=== PATIENT | female | born 1940 | race Caucasian/White ===

== ENCOUNTER → 2019-11-20 14:05 | Outpatient (CLI) | payer MEDICARE, SELFPAY ==
--- NOTE | ~2019-11-20 | MM_ITS ---
EXAMINATION: MM screening ciro BI w waldemar HISTORY: Screening mammogram TECHNIQUE: Craniocaudal and mediolateral oblique 3-D tomosynthesis images were obtained and synthetic 2-D images were generated. CAD analysis was submitted and interpreted. COMPARISON: No prior mammogram is available for comparison at this institution. BREAST PARENCHYMAL COMPOSITION: There are scattered areas of fibroglandular density. FINDINGS: There is no evidence of suspicious mass, calcification, or architectural distortion to sugg est malignancy in either breast. There has been no suspicious interval change. IMPRESSION: 1. No mammographic evidence of malignancy. 2. Recommend routine screening mammography in one year. BI-RADS Category 2: Benign finding(s). Reviewed, dictated and finalized at location A.
== END ==
PROVIDERS: Visit Provider Clinical Nurse Specialist
DX: Z12.31 Encounter for screening mammogram for malignant neoplasm of breast (principal)
CPT/HCPCS: 77063; 77067

== ENCOUNTER → 2020-03-17 11:18 | Outpatient (CLI) | payer MEDICARE, SELFPAY ==
--- NOTE | ~2020-03-17 | DEXA_ITS ---
Bone Density Report Name: Cristina Moran Age: 79 Sex: Female Ethnicity: White Date of : 1940 Indication: postmenopausal; screening for osteoporosis; height loss; hysterectomy; Referring Provider: Marylu Boateng Study: Bone densitometry was performed. Exam Date: March 17, 2020 Accession number: [id number] Bone Density: Region BMD T-score Z-score Classification AP Spine (L1, L2, L4) 0.925 -1.0 1.6 Normal Femoral Neck (Left) 0.577 -2.5 -0.2 Osteoporosis Total Hip (Left) 0.835 -0.9 1.1 Normal Femoral Neck (Right) 0.628 -2.0 0.2 Osteopenia Total Hip (Right) 0.775 -1.4 0.6 Osteopenia Total Hip Mean 0.805 -1.2 0.9 Osteopenia World Health Organization criteria for BMD impression classify patients as: Normal (T-score at or above -1.0), Osteopenia (T-score between -1.0 and -2.5), or Osteoporosis (T-score at or below -2.5). 10-year Fracture Risk: FRAX not reported because: Some T-score for Spine Total or Hip Total or Femoral Neck at or below -2.5 Previous Exams: Region Exam Age BMD T-score BMD Change BMD Change Date g/cm2 vs Baseline vs Previous AP Spine(L1, L2, L4) 03/17/2020 79 0.925 -1.0 -0.062* -0.015 03/08/2018 77 0.940 -0.9 -0.047* -0.024* 07/09/2014 73 0.964 -0.6 -0.023* -0.023* 07/06/2012 71 0.987 -0.4 Total Hip(Left) 03/17/2020 79 0.835 -0.9 -0.148* -0.061* 03/08/2018 77 0.897 -0.4 -0.086* -0.023 07/09/2014 73 0.920 -0.2 -0.063* -0.063* 07/06/2012 71 0.983 0.3 Total Hip(Right) 03/17/2020 79 0.775 -1.4 -0.150* -0.087* 03/08/2018 77 0.861 -0.7 -0.064* -0.011 07/09/2014 73 0.873 -0.6 -0.053* -0.053* 07/06/2012 71 0.925 -0.1 *Denotes significance at 95% confidence level, LSC for AP Spine = 0.022 g/cm2, LSC for Total Hip = 0.027 g/cm2 Clinical Information Provided by Patient: Has used the following medications: Vitamin D, Calcium, MTV Has the following medical conditions: Hysterectomy Patient maximum height was 62.5 Menopause Age: 56 No regular weight bearing exercise Drinks caffeinated beverages Onset of menses at age 13 Number of children 3 Impression: The patient has osteoporosis, based on the Left Femoral Neck T-score. The BMD for the Total Hip(Left) decreased, changing by -0.061 since the last DXA exam. The BMD for the Total Hip(Righ
== END ==
PROVIDERS: PCP Internal Medicine; Visit Provider Clinical Nurse Specialist
DX: Z78.0 Asymptomatic menopausal state (principal); M81.0 Age-related osteoporosis without current pathological fracture; M85.851 Other specified disorders of bone density and structure, right thigh
CPT/HCPCS: 77080

== ENCOUNTER → 2020-03-23 11:36 | Outpatient (CLI) | payer MEDICARE, SELFPAY ==
--- NOTE | ~2020-03-23 | XR_ITS ---
EXAMINATION: XR hip BI 2V w AP pelvis EXAM DATE: 03/23/2020 11:55 INDICATION: M25.559 - Pain in unspecified hip. TECHNIQUE: Each hip imaged independently (separate right and also left hip) 'frog leg' and frontal p rojections for interpretation. Frontal projection pelvis. There is no prior study for comparison. FINDINGS: No radiographic evidence of hip avascular necrosis. There is mild to moderate symmetric bi lateral hip and sacroiliac primary osteoarthritis. There are no acute fractures or dislocations ident ified. There is no subcutaneous gas. The soft tissue is unremarkable. There are no radiopaque for eign bodies. 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 Reviewed, dictated and finalized at location B. TER HELPER
== END ==
PROVIDERS: PCP Internal Medicine; Visit Provider Clinical Nurse Specialist
DX: M16.0 Bilateral primary osteoarthritis of hip (principal)
CPT/HCPCS: 73521

== ENCOUNTER → 2020-11-27 10:05 | Outpatient (CLI) | payer MEDICARE, SELFPAY ==
--- NOTE | ~2020-11-27 | MM_ITS ---
EXAMINATION: MM screening icro BI w waldemar HISTORY: Screening mammogram, family history of breast cancer in her sister. TECHNIQUE: Craniocaudal and mediolateral oblique 3-D tomosynthesis images were obtained and synthetic 2-D images were generated. CAD analysis was submitted and interpreted. COMPARISON: 11/20/2019, 10/03/2018, 09/27/2017 BREAST PARENCHYMAL COMPOSITION: There are scattered areas of fibroglandular density. FINDINGS: RIGHT BREAST: There are asymmetries in the anterior third of the outer breast 5.6 cm from the nipple on the craniocaudal view and 12 cm from the nipple in line with the nipple axis on the mediolateral o blique view. LEFT BREAST: An asymmetry is present in the middle third of the breast in line with the nipple axis 7 .5 cm from the nipple on the mediolateral oblique view. IMPRESSION: 1. Bilateral breast findings as described above. 2. Additional mammographic views and possible breast ultrasound are recommended. BI-RADS Category 0: Incomplete: Needs additional imaging evaluation. Reviewed, dictated and finalized at location A. IMPRESSION: 1. Bilateral breast findings as described above. 2. Additional mammographic views and possible breast ultrasound are recommended . BI-RADS Category 0: Incomplete: Needs additional imaging evaluation.
== END ==
PROVIDERS: PCP Internal Medicine; Visit Provider Nurse Practitioner
DX: Z12.31 Encounter for screening mammogram for malignant neoplasm of breast (principal); R92.8 Other abnormal and inconclusive findings on diagnostic imaging of breast
CPT/HCPCS: 77063; 77067

== ENCOUNTER 2020-12-18 13:10 | Outpatient (CLI) | payer MEDICARE, SELFPAY ==
--- NOTE | ~2020-12-18 | MMUS_ITS ---
EXAMINATION: MM diagnostic ciro BI w waldemar, US breast BI complete HISTORY: Follow-up breast asymmetries TECHNIQUE: Additional 3-D tomosynthesis images of the breasts were performed and synthetic 2-D images were generated. CAD analysis was submitted and interpreted. High resolution complete bilateral breas t ultrasound was performed. COMPARISON: Comparison to multiple prior studies sequentially, with oldest reviewed study dated 08/23. BREAST PARENCHYMAL COMPOSITION: The breasts are heterogenously dense, which may obscure small masses. FINDINGS: MAMMOGRAPHIC FINDINGS: There are no suspicious masses, calcifications or architectural distortion in either breast to sugges t malignancy. There are benign bilateral breast calcifications. ULTRASOUND: Right breast ultrasound: At 3:00 there is an echogenic focus with posterior shadowing, consistent wit h calcification measuring 5 mm. At 10:00, 3 cm from the nipple, there is a 4 mm cyst. At 11:00, 4 cm from the nipple, there is an oval hypoechoic mass measuring 5 mm with low level internal echoes, no s ignificant posterior features and no internal vascularity. Left breast ultrasound: Normal heterogeneous echotexture without focal solid or cystic mass. IMPRESSION: 1. Probable benign 5 mm mass of the right breast at 11:00, 4 cm from the nipple. No evidence for vonnie gnancy in the left breast. 2. Recommend 6 month follow-up right breast ultrasound BI-RADS category 3, probably benign findings. Reviewed, dictated and finalized at location A. IMPRESSION: 1. Probable benign 5 mm mass of the right breast at 11:00, 4 cm from the nipple . No evidence for malignancy in the left breast. 2. Recommend 6 month follow-up right breast ultrasound BI-RADS category 3, probably benign findings.
== END 2020-12-18 13:11 | disposition home or self-care (01) ==
LOC: ANHIMG 13:12
PROVIDERS: PCP Internal Medicine; Visit Provider Nurse Practitioner
DX: R92.8 Other abnormal and inconclusive findings on diagnostic imaging of breast (principal)
CPT/HCPCS: 76641; 77062; 77066; G0279

== ENCOUNTER 2020-12-18 14:29 | Emergency (ER) | payer MEDICARE, SELFPAY ==
--- NOTE | ~2020-12-18 | CT_ITS ---
EXAMINATION: CT abdomen pelvis w con EXAM DATE: 12/18/2020 17:47 INDICATION: Suprapubic pain . TECHNIQUE: Spiral CT of the abdomen and pelvis was performed following intravenous injection of 100 m L Omnipaque 350. Axial, coronal and sagittal images of the abdomen and pelvis were reviewed. The do se-length product (DLP) for this examination was 1339.49 mGy-cm. The exposure was tailored according to patient size (auto mA exposure control), and iterative reconstruction (ASIR) was used as addition al dose reduction technique. Comparison is made to prior examination from 2008. FINDINGS: The liver, spleen, adrenal glands and pancreas are unremarkable. There are cholecystectomy clips. Portal and splenic veins are patent. Kidneys enhance symmetrically. There is no hydronephr osis. The uterus is not identified and has likely been surgically resected. diffuse bladder wall t hickening with enhancing mucosa suspicious for cystitis. Correlate with urinalysis. There is no retr operitoneal or pelvic lymphadenopathy. There is mild scattered arteriosclerotic disease. The appendix is normal. The stomach and small bowel are unremarkable. There is expected amount of c olonic stool. No free intraperitoneal gas. The heart is normal in size. There are no pericardial or pleural effusions. Left basilar calcified granuloma and several smaller noncalcified nodules, la rgest measuring 7 mm appears to be unchanged compared to a CT from 2009, granulomata. There are no o steoblastic or osteolytic lesions identified. IMPRESSION: Cystitis. Correlate with urinalysis. Reviewed, dictated and finalized at location .
[2020-12-18 14:33] VITALS: BP 143/73; PULSE 84; RESP 16; TEMP 36.3; O2SAT 96
[2020-12-18 14:48] LABS: Basophils Percent Auto 0.2 % (0.2-1.2); Eosinophils Percent Auto 0.5 % (0-4.4); Hematocrit 43.2 % (37.0-47.0); Hemoglobin 14.2 g/dL (12.0-15.0); Immature Granulocyte Absolute 0.04 K/mm3 (0.00-0.031); Immature Granulocyte Percent A 0.5 % (0-0.5); Lymphocytes Absolute Auto 2.11 K/mm3 (0.9-3.2); Lymphocytes Percent Auto 25.2 % (18.3-44.2); Mean Corpuscular HGB Conc 32.9 g/dl (32-36); Mean Corpuscular Hemoglobin 29.6 pg (26-34); Mean Corpuscular Volume 90.2 fl (80-100); Mean Platelet Volume 9.4 fl (7.4-10.4); Monocytes Absolute Auto 0.5 K/mm3 (0.1-0.6); Monocytes Percent Auto 6.5 % (2.6-8.5); Neutrophils Absolute Auto 5.6 K/mm3 (1.3-6.7); Neutrophils Percent Auto 67.1 % (45.5-73.1); Platelet Count Result 175 k/mm3 (150-375); Red Blood Count 4.79 M/mm3 (4.2-5.4); Red Cell Distribution Width 12.4 % (11.5-14.5); White Blood Count 8.4 K/mm3 (4.5-10.0)
[2020-12-18 15:02] LABS: Anion Gap 9 mmol/L (8-16); Blood Urea Nitrogen 12 mg/dL (7-17); Calcium 9.6 mg/dL (8.4-10.2); Carbon Dioxide 24 mmol/L (22-30); Chloride 104 mmol/L (98-107); Estimated CRCL calculation 76 ml/min; Estimated Glomerular Filt Rate > 60; Glucose 120 mg/dL (65-110); Potassium 4.1 mmol/L (3.4-5.0); Sodium 137 mmol/L (137-145)
[2020-12-18 15:20] LABS: Add Urine Microscopic? YES; Appearance Urine Cloudy (Clear); Bacteria Urine Trace /hpf; Bilirubin Urine Negative (Negative); Blood Urine 2+ (Negative); Color Urine Yellow (Yellow); Glucose Urine UA Negative (Negative); Ketones Urine Negative (Negative); Leukocyte Esterase Ur 3+ LEU/UL (Negative); Nitrate Urine Negative (Negative); Protein Urine 2+ mg/dL (Negative); RBC Urine 51-75 /hpf (0-2); Urobilinogen Urine Negative mg/dL (<2.0); WBC Urine >75 /hpf
--- NOTE | 2020-12-18 16:38 | ED.FEMALEGU ---
HPI - Female Genitourinary General Chief complaint: Urogenital-Female Stated complaint: POSS UTI Time Seen by Provider: 12/18/20 16:37 Source: patient Mode of arrival: ambulatory Limitations: no limitations History of Present Illness HPI Narrative: Patient 80 years old white female came to the emergency room from home with her complaining of recurrent urinary tract infection over the last few weeks. Patient also complaining of bulging at the rectal area. Patient denies any fever, nausea, vomiting, diarrhea, constipation. Patient complaining of frequent urination, burning sensation and urgency. Patient is fully vaccinated for COVID-19. Related Data Home Medications Medication Instructions Recorded Confirmed ascorbate calcium (vitamin C) 500 500 mg PO DAILY 02/21/19 12/11/20 mg tablet cholecalciferol (vitamin D3) 50 2,000 unit PO DAILY 02/21/19 12/11/20 mcg (2,000 unit) tablet melatonin 10 mg tablet PO QPM tablet 02/21/19 12/11/20 multivitamin 1 tablet PO DAILY 02/21/19 12/11/20 potassium 99 mg tablet mg PO DAILY tablet 02/21/19 12/11/20 ibuprofen 200 mg tablet 200 mg PO QPM tablet 02/26/20 12/11/20 vitamin B complex 1 tablet PO DAILY 11/13/20 12/11/20 calcium acetate 667 mg tablet 1,334 mg PO DAILY tablet 12/11/20 12/11/20 Allergies Allergy/AdvReac Type Severity Reaction Status Date / Time oxycodone Allergy Severe NAUSEA AND Verified 12/18/20 16:56 ITCHING Penicillins Allergy Severe ITCHING Verified 12/18/20 16:56 Review of Systems Review of Systems: CONSTITUTIONAL: Denies fever, chills, or sweats. EYES: Denies visual changes, redness, or discharge. ENT: Denies rhinorrhea, congestion, sore throat, or otalgia. CARDIOVASCULAR: Denies chest pain, palpitations, or edema. RESPIRATORY: Denies cough or dyspnea. GASTROINTESTINAL: Denies abdominal pain, nausea, vomiting, or diarrhea. GENITOURINARY: Complaining of dysuria and hematuria SKIN: Denies rash or itching. MUSCULOSKELETAL: Denies back pain, joint pain, or myalgia. NEUROLOGIC: Denies headache, numbness, or weakness. PSYCHIATRIC: Denies anxiety or depression. [facility], [facility] Past Medical History Medical History Allergies Cataract Cholecystectomy planned 2006 GERD (gastroesophageal reflux disease) Glaucoma Heart palpitations Heartburn Hyperglycemia Hyperkalemia Hyperlipidemia Hypertension Hyperthyroidism Lymph node symptom Lymph nodes removed from left breast Mumps Osteoarthritis Osteoporosis Post-menopausal Skin disorder Tumors Surgical History Surgical History H/O removal of cyst From neck 1996 H/O tubal ligation 1983 H/O: hysterectomy 1996 History of knee replacement Right: 1994 Left: 2001 Family History Family History Mother Family history of heart disease in male family member before age 55 Acute myocardial infarction Breast disorder Father Malignant neoplasm of prostate Sibling Acute myocardial infarction COPD (chronic obstructive pulmonary disease) Heart disease Other Family history of type 2 diabetes mellitus Social History Social History Smoking status: Never smoker Alcohol intake: never Substance use: never Exam Narrative: General appearance: Well-developed, well-nourished Skin: Normal color Head: Normocephalic, nontraumatic Eyes: Clear conjunctiva ENT: Oropharynx normal, ears normal, nose normal Neck: Supple, nontender Chest and respiratory: Airway patent, no respiratory distress, no accessory muscle use Heart: Regular rate/rhythm Abdomen: Soft, nontender, no organomegaly, quiet bowel sounds, rectal exam showed skin tag, no hemorrhoids, no bleeding, no mass Vascular: Normal peripheral pulses, normal capillary refill. Musculoskeletal: Normal range of motion, nontender back Neurologic
[2020-12-18 16:56] VITALS: BP 131/69; PULSE 87; RESP 16; TEMP 37; O2SAT 99
[2020-12-18] MEDS: SODIUM CHLORIDE 0.9% IV 1,000 ML 999 ML IV CONT (17:16)
[2020-12-18 18:40] VITALS: BP 124/68; PULSE 88; RESP 16
== END 2020-12-18 18:59 | disposition home or self-care (01) ==
PROVIDERS: General Practice; Emergency Provider Emergency Medicine; PCP Internal Medicine
DX: N30.00 Acute cystitis without hematuria (principal); E78.5 Hyperlipidemia, unspecified; I10 Essential (primary) hypertension; E05.90 Thyrotoxicosis, unspecified without thyrotoxic crisis or storm; M19.90 Unspecified osteoarthritis, unspecified site; M81.0 Age-related osteoporosis without current pathological fracture; Z87.19 Personal history of other diseases of the digestive system; Z98.51 Tubal ligation status; Z90.710 Acquired absence of both cervix and uterus; Z79.899 Other long term (current) drug therapy
CPT/HCPCS: 36415; 74177; 76641; 77062; 77066; 80048; 81001; 85025; 87086; 96361; 96365; 99284; G0279; J0696; J7030; Q9967

== ENCOUNTER → 2021-06-18 14:07 | Outpatient (CLI) | payer MEDICARE, SELFPAY ==
--- NOTE | ~2021-06-18 | US_ITS ---
EXAMINATION: US breast RT limited HISTORY: Six-month follow-up for probably benign sonographically detected right breast masses TECHNIQUE: Limited right breast ultrasound is performed. FINDINGS: The hypoechoic masses previously identified at the 11:00 location both demonstrate interval decrease in size, consistent with benign findings. No suspicious cystic or solid mass is identified. IMPRESSION: Benign right breast masses. Routine screening mammography is recommended. BI-RADS Category 2: Benign finding(s). Reviewed, dictated and finalized at location A.
== END ==
PROVIDERS: Visit Provider Clinical Nurse Specialist
DX: R92.8 Other abnormal and inconclusive findings on diagnostic imaging of breast (principal)
CPT/HCPCS: 76642

== ENCOUNTER 2021-07-15 12:24 | Outpatient (CLI) | payer MEDICARE, SELFPAY ==
--- NOTE | 2021-07-15 12:35 | ECG_ITS ---
Measurements Intervals [place] Rate: 79 P: 47 VA: 167 QRS: -29 QRSD: 85 T: 15 QT: 349 QTc: 401 Interpretive Statements SINUS RHYTHM LOW QRS VOLTAGE IN PRECORDIAL LEADS [QRS DEFLECTION < 1.0 mV IN CHEST LEADS] ANTEROSEPTAL MYOCARDIAL INFARCTION [40+ ms Q WAVE IN V1-V4], PROBABLY OLD NO PREVIOUS ECG AVAILABLE FOR COMPARISON Electronically Signed On 07-15-2021 17:00:25 CDT by Adrian Pollard M.D.
[2021-07-15 13:02] LABS: Basophils Percent Auto 0.5 % (0.2-1.2); Eosinophils Percent Auto 0.5 % (0-4.4); Hematocrit 41.4 % (37.0-47.0); Hemoglobin 13.8 g/dL (12.0-15.0); Immature Granulocyte Absolute 0.02 K/mm3 (0.00-0.031); Immature Granulocyte Percent A 0.5 % (0-0.5); Lymphocytes Absolute Auto 1.61 K/mm3 (0.9-3.2); Lymphocytes Percent Auto 40.1 % (18.3-44.2); Mean Corpuscular HGB Conc 33.3 g/dl (32-36); Mean Corpuscular Hemoglobin 29.7 pg (26-34); Mean Platelet Volume 9.1 fl (7.4-10.4); Monocytes Absolute Auto 0.3 K/mm3 (0.1-0.6); Monocytes Percent Auto 6.5 % (2.6-8.5); Neutrophils Absolute Auto 2.1 K/mm3 (1.3-6.7); Neutrophils Percent Auto 51.9 % (45.5-73.1); Platelet Count Result 152 k/mm3 (150-375); Red Blood Count 4.65 M/mm3 (4.2-5.4); Red Cell Distribution Width 12.8 % (11.5-14.5)
[2021-07-15 13:10] LABS: Alanine Aminotransferase 22 U/L (4-35); Albumin Level 4.2 g/dL (3.5-5.1); Alkaline Phosphatase 98 U/L (38-126); Anion Gap 9 mmol/L (8-16); Aspartate Amino Transferase 26 U/L (14-36); Bilirubin,Total 0.3 mg/dL (0.2-1.3); Blood Urea Nitrogen 20 mg/dL (7-17); Calcium 9.2 mg/dL (8.4-10.2); Carbon Dioxide 26 mmol/L (22-30); Chloride 103 mmol/L (98-107); Estimated Glomerular Filt Rate > 60; Glucose 118 mg/dL (65-110); Potassium 4.2 mmol/L (3.4-5.0); Sodium 138 mmol/L (137-145)
[2021-07-15 13:31] LABS: Prothrombin Time 12.9 Seconds (11.1-14.7)
[2021-07-15 13:32] LABS: Partial Thromboplastin Time 25.9 SECONDS (22.3-36.8)
== END 2021-07-15 12:25 | disposition home or self-care (01) ==
PROVIDERS: PCP Internal Medicine; Visit Provider Urology
DX: Z01.818 Encounter for other preprocedural examination (principal); N99.3 Prolapse of vaginal vault after hysterectomy; I10 Essential (primary) hypertension; R94.31 Abnormal electrocardiogram [ECG] [EKG]
CPT/HCPCS: 36415; 80053; 85025; 85610; 85730; 86850; 86900; 86901; 87086; 93005

== ENCOUNTER 2021-07-23 00:44 | Day surgery (SDC) | payer MEDICARE, SELFPAY ==
[2021-07-09 12:25] VITALS: BMI 35.4
--- NOTE | 2021-07-09 12:42 | PC.NURSE ---
Report to the Outpatient Waiting Room, entrance under the green pavilion located off [facility], at time _0830_ on date _07/23/21_. OR Time: _1030_. - You and your visitor will be asked a series of questions to screen for COVID 19 for your protection. - A mask is required within the hospital. One visitor will be allowed to accompany the patient into the hospital. Patients visitor will be instructed to remain with patient at all times or leave the building. We will allow the visitor to come back to the postoperative area when patient is ready. Preoperative COVID Testing Requirements: NONE Patients may have clear liquids (water, carbonated beverages, clear teas, apple juice) until 3 hours prior to surgery (0730 AM) with a maximum of 20 ounces. - No food from midnight until time of surgery Take the following medications with a SIP of water the morning of surgery: __NONE__ Medications to discontinue _PT STATES TO STOP IBUPROFEN, VITAMINS AND SUPPLEMENTS [address] GAMA Date to take last dose_07/19/21_ Please no make-up, nail italian, hairspray, perfume, deodorant, or body powder the day of surgery. No jewelry (including any body piercings) or valuables the day of surgery, leave them at home. Please take a shower or bath the night before, or the morning of, surgery with an antibacterial soap. Wear comfortable, loose fitting clothing. - Jewelry must be removed prior to entering the operating room. Rings and piercings that are not removed may be cut off. - The hospital will not accept responsibility for valuables. - Please leave all valuables, including medications, at home the day of surgery. If you are going home after surgery, a licensed m48/m60 tank driver must drive you home. - NO public transportation without another adult. - We recommend that an adult stay with you for 24 hours following discharge. - We also recommend that you do not drive, make important decision, drink alcoholic beverages, or take any drugs that were not prescribed by your health care provider for at least 24 hours after your discharge time. Follow any additional instructions given to you from your surgeon. Telephone instructions given to _PT_and asked if any additional questions and then verbalized understanding. Patient advised to call surgeon office or pre surgery nurse liaison [phone] if any additional questions.
--- NOTE | 2021-07-17 11:59 | PM.IMHP ---
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 Chief Complaint: POP/ISD Review of Systems Review of Systems: All systems reviewed & are unremarkable except as noted in HPI and below PMFSH Past Medical History Medical History Allergies Cataract Cholecystectomy planned 2006 GERD (gastroesophageal reflux disease) Glaucoma Heart palpitations Heartburn Hyperglycemia Hyperkalemia Hyperlipidemia Hypertension Hyperthyroidism Lymph node symptom Lymph nodes removed from left breast Mumps Osteoarthritis Osteoporosis Post-menopausal Skin disorder Tumors Surgical History Surgical History H/O removal of cyst From neck 1996 H/O tubal ligation 1983 H/O: hysterectomy 1996 History of knee replacement Right: 1994 Left: 2001 Family History Family History Mother Family history of heart disease in male family member before age 55 Acute myocardial infarction Breast disorder Father Malignant neoplasm of prostate Sibling Acute myocardial infarction COPD (chronic obstructive pulmonary disease) Heart disease Other Family history of type 2 diabetes mellitus Social History Social History Smoking status: Never smoker Second hand tobacco smoke exposure: No Alcohol intake: never Substance use: never Substance use type: does not use Spiritual care concerns: No Meds Home Medications and Allergies Home Medications Medication Instructions Recorded Confirmed Type ascorbate calcium (vitamin C) 500 500 mg PO QAM 02/21/19 07/09/21 History mg tablet cholecalciferol (vitamin D3) 50 2,000 unit PO DAILY 02/21/19 07/09/21 History mcg (2,000 unit) tablet melatonin 10 mg tablet 10 mg PO QPM tablet 02/21/19 07/09/21 History multivitamin 1 tablet PO DAILY 02/21/19 07/09/21 History potassium 99 mg tablet 40 mg PO QAM tablet 02/21/19 07/09/21 History ibuprofen 200 mg tablet 200 mg PO QPM PRN tablet 02/26/20 07/09/21 History calcium acetate 667 mg tablet 1,334 mg PO QAM tablet 12/11/20 07/09/21 History mirabegron 50 mg tablet,extended 50 mg PO HS 03/10/21 07/09/21 History release 24 hr cranberry 500 mg PO QAM 07/09/21 07/09/21 History lisinopril 20 mg PO QAM 07/09/21 07/09/21 History nitrofurantoin macrocrystal 50 mg HS 07/09/21 07/09/21 History omeprazole 20 mg PO QAM 07/09/21 07/09/21 History simvastatin 40 mg PO QAM 07/09/21 07/09/21 History sulfamethoxazole-trimethoprim 1 tablet DAILY 07/09/21 07/09/21 History Allergies Allergy/AdvReac Type Severity Reaction Status Date / Time oxycodone AdvReac Severe NAUSEA AND Verified 07/09/21 12:14 ITCHING Penicillins AdvReac Severe ITCHING Verified 07/09/21 12:14 Exam Narrative: A+O x3 normal breathing fixed urethra APex at +4 Assessment and Plan Assessment and plan (1) Prolapse of vaginal vault after hysterectomy: Code(s): N99.3 - Prolapse of vaginal vault after hysterectomy Status: Acute Assessment and Plan: colpocleisis (2) Intrinsic sphincter deficiency (ISD): Code(s): N36.42 - Intrinsic sphincter deficiency (ISD) Status: Acute Assessment and Plan: bulking agetn
--- NOTE | 2021-07-22 13:30 | WPDANESEPPF ---
Anes - Initial Pre Proc Eval Procedure: Operation Date: 07/23/21 10:30 Proposed Procedures p Colpocleisis, - Ted Coombs MD s Cystoscopy with Injection Bulking Agent - Ted Coombs MD Date/Time: 07/22/21 13:30 Surgeon: Ted Coombs MD Pre Op Diagnosis: prolapse of vag vault after hyst, ID Patient Data Age: 80 Gender: F Height: 1.52 m Weight: 82.27 kg Allergies Allergy/AdvReac Type Severity Reaction Status Date / Time oxycodone AdvReac Severe NAUSEA AND Verified 07/23/21 08:46 ITCHING Penicillins AdvReac Severe ITCHING Verified 07/23/21 08:46 Home Medications Medication Instructions Recorded Confirmed Type ascorbate calcium (vitamin C) 500 500 mg PO QAM 02/21/19 07/23/21 History mg tablet cholecalciferol (vitamin D3) 50 2,000 unit PO DAILY 02/21/19 07/23/21 History mcg (2,000 unit) tablet melatonin 10 mg tablet 10 mg PO QPM tablet 02/21/19 07/23/21 History multivitamin 1 tablet PO DAILY 02/21/19 07/23/21 History potassium 99 mg tablet 40 mg PO QAM tablet 02/21/19 07/23/21 History ibuprofen 200 mg tablet 200 mg PO QPM PRN tablet 02/26/20 07/23/21 History calcium acetate 667 mg tablet 1,334 mg PO QAM tablet 12/11/20 07/23/21 History mirabegron 50 mg tablet,extended 50 mg PO HS 03/10/21 07/23/21 History release 24 hr cranberry 500 mg PO QAM 07/09/21 07/23/21 History lisinopril 20 mg PO QAM 07/09/21 07/23/21 History nitrofurantoin macrocrystal 50 mg HS 07/09/21 07/23/21 History omeprazole 20 mg PO QAM 07/09/21 07/23/21 History simvastatin 40 mg PO QAM 07/09/21 07/23/21 History sulfamethoxazole-trimethoprim 1 tablet DAILY 07/09/21 07/23/21 History Patient hx anesthesia problems: none Family hx anesthesia problems: none Results Review: All pre-operative results and documents have been reviewed as part of the pre-operative evaluation. [facility] Past Medical History Medical History Allergies Cataract Cholecystectomy planned 2006 GERD (gastroesophageal reflux disease) Glaucoma Heart palpitations Heartburn Hyperglycemia Hyperkalemia Hyperlipidemia Hypertension Hyperthyroidism Lymph node symptom Lymph nodes removed from left breast Mumps Osteoarthritis Osteoporosis Post-menopausal Skin disorder Tumors Surgical History Surgical History H/O removal of cyst From neck 1996 H/O tubal ligation 1983 H/O: hysterectomy 1996 History of knee replacement Right: 1994 Left: 2001 Family History Family History Mother Family history of heart disease in male family member before age 55 Acute myocardial infarction Breast disorder Father Malignant neoplasm of prostate Sibling Acute myocardial infarction COPD (chronic obstructive pulmonary disease) Heart disease Other Family history of type 2 diabetes mellitus Social History Social History Smoking status: Never smoker Second hand tobacco smoke exposure: No Alcohol intake: never Substance use: never Substance use type: does not use Living arrangements: with family Spiritual care concerns: No Anes - Eval Final PreProcedure Day of Procedure 07/22/21 13:30 Patient weight: obese Heart: regular rate and rhythm Lungs: clear to auscultation and normal air movement Airway: Mallampati scale class II Neurological: alert and oriented Last oral intake: >/= 8 hours ASA classification: III Emergent: no Anesthetic plan: proceed Anesthesia type and monitoring: general LMA and standard monitoring Results Review: All pre-operative results and documents have been reviewed as part of the pre-operative evaluation. Informed Consent: The patient's anesthetic plan and its attendant risks and benefits were discussed with the patient/family/POA. Questions were solicited and answers prov
[2021-07-23] VITALS (10 sets, daily range): BP systolic 119–152; BP diastolic 47–83; PULSE 75–87; RESP 14–17; TEMP 36.2–36.5; O2SAT 94–100
--- NOTE | 2021-07-23 07:16 | WPDHPUPDATE1 ---
History and Physical Update Update Date/Time: 07/23/21 07:16 History and Physical has been reviewed, including an updated exam of the patient. There are NO changes in the patient's condition. Risks, benefits, and alternatives have been discussed and questions answered. Patient agrees to proceed with procedure.
[2021-07-23] MEDS: LACTATED RINGERS 1,000 ML 30 ML IV CONT ×2 (09:12→12:49)
[2021-07-23] MEDS: ceFAZolin 2 GM/D5W 50 ML 2 GM/50 ML BAG IVPB (10:44)
--- NOTE | 2021-07-23 11:28 | SUR.OPER ---
bulkamid uretheral bulking system Lot# [id number], exp 2023-10-01, ref #[id number]. 1 ml used.
--- NOTE | 2021-07-23 12:05 | W.PM.PROC2 ---
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 She is not sexually active. She also has intrinsic sphincter deficiency and stress incontinence She understands risks of bleeding, infection, persistent incontinence, recurrent incontinence, obstructive voiding work, recurrence of prolapse, damage to surrounding organs including the bowel and urinary tract, inability to have penetrated intercourse. She agrees to proceed Findings Large vaginal vault prolapse. Intrinsic sphincter deficiency Description of Procedure She has correctly identified. Informed consent obtained. She brought the operating room. She was given general anesthesia. She was prepped and draped in a sterile fashion in the dorsal lithotomy position. Time-out performed. I placed Glynn catheter. I placed a [place] retractor. I grasped the vaginal vault prolapse. It was significantly beyond the introitus. I tamara 2 rectangle shaped areas. One on the anterior vaginal. One on the posterior vaginal wall. I then anesthetized the posterior vaginal wall. I removed the mucosa off the posterior vaginal wall leaving the underlying tissues. I did the same on the anterior vaginal wall. I did not enter the abdomen or violate any peritoneal structures. I then performed a classic colpocleisis with serial pursestring sutures of 0 Vicryl. This resulted in complete reduction of the prolapse. There was excellent hemostasis. I then closed mucosa to mucosa with interrupted horizontal mattress of 0 Vicryl suture. This completed the colpectomy. I then marked out a eriberto-shaped area of skin on the perineum. I anesthetized this area. I removed the skin. I performed a high levator repair/perineorrhaphy with 0 Vicryl sutures. I used a 2 0 Vicryl to close the mucosa. This resulted in complete closure of the perineum. I then performed cystoscopy. She had moderate trabeculations. There was no surgical artifact in the bladder or urethra. Both ureters were seen to excrete clear yellow urine. She had a wide-mouth diverticulum posteriorly. I then injected my bulking agent in the urethra. I did so 2 cm distal to the bladder neck. I injected circumferentially around the urethral bulking up the urethra. I left the bladder partially full. She was awakened and transferred to PACU in stable condition Estimated Blood Loss 50 Drains No Packing No Pathology None sent Complications No immediate complications Condition Stable Disposition PACU
[2021-07-23] MEDS: fentaNYL CITRATE INJ (*CRX) 100 MCG/2 ML VIAL 25 MCG IV PUSH ×5 (12:19→12:52)
[2021-07-23] MEDS: traMADol HCL (*CRX) 50 MG TABLET PO (13:46)
== END 2021-07-23 14:40 | disposition home or self-care (01) ==
PROVIDERS: PCP Internal Medicine; Visit Provider Urology
PROC: (CPT 57120; principal; 2021-07-23 10:30)
PROC: 3E0K8GC Introduction of Other Therapeutic Substance into Genitourinary Tract, Via Natural or Artificial Opening Endoscopic (ICD-10-PCS; CPT 57120; 2021-07-23 10:30)
DX: N99.3 Prolapse of vaginal vault after hysterectomy (principal); N36.42 Intrinsic sphincter deficiency (ISD); N39.3 Stress incontinence (female) (male); N32.89 Other specified disorders of bladder; I10 Essential (primary) hypertension; E78.5 Hyperlipidemia, unspecified; K21.9 Gastro-esophageal reflux disease without esophagitis; H40.9 Unspecified glaucoma; M81.0 Age-related osteoporosis without current pathological fracture; E66.9 Obesity, unspecified; Z68.34 Body mass index [BMI] 34.0-34.9, adult
CPT/HCPCS: 57120; 51715; 36415; 80053; 85025; 85610; 85730; 86850; 86900; 86901; 87086; 87088; 93005; A9270; J0690; J1100; J2405; J2704; J3010; J7030; J7120; L8606

== ENCOUNTER → 2021-12-20 10:17 | Outpatient (CLI) | payer MEDICARE, SELFPAY ==
--- NOTE | ~2021-12-20 | MM_ITS ---
EXAMINATION: MM screening ciro BI w waldemar HISTORY: Screening mammogram, family history of breast cancer in her sister. TECHNIQUE: Craniocaudal and mediolateral oblique 3-D tomosynthesis images were obtained and synthetic 2-D images were generated. CAD analysis was submitted and interpreted. COMPARISON: 12/18/2020, 11/27/2020, 11/20/2019 BREAST PARENCHYMAL COMPOSITION: There are scattered areas of fibroglandular density. FINDINGS: Scattered benign-appearing calcifications are present. There is no suspicious mass, calcifi cation, or architectural distortion to suggest malignancy in either breast. There has been no suspici ous interval change. IMPRESSION: 1. No mammographic evidence of malignancy. 2. Recommend routine screening mammography while the patient remains in good health. BI-RADS Category 2: Benign finding(s). Reviewed, dictated and finalized at location A. IMPRESSION: 1. No mammographic evidence of malignancy. 2. Recommend routine screening mammography while the patient remains in good he alth. BI-RADS Category 2: Benign finding(s).
== END ==
PROVIDERS: PCP Internal Medicine; Visit Provider Clinical Nurse Specialist
DX: Z12.31 Encounter for screening mammogram for malignant neoplasm of breast (principal)
CPT/HCPCS: 77063; 77067

== ENCOUNTER → 2022-05-04 11:15 | Outpatient (CLI) | payer MEDICARE, SELFPAY ==
--- NOTE | ~2022-05-04 | XR_ITS ---
EXAMINATION: XR hand RT 2V DATE: 05/04/2022 12:16 INDICATION: Lump at the dorsal aspect of the carpus the right hand TECHNIQUE: Posteroanterior and lateral views of the right hand were obtained. COMPARISON: Bone alignment FINDINGS: Widening of the scapholunate interval with step-off along the carpal arches of the scapholunate joint suggesting scapholunate ligament insufficiency. 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 Moderate osteoarthritis at the triscaphe and first carpometacarpal joint. Mild osteoarthritis at the midcarpal and multiple metacarpophalangeal and interphalangeal joints. Th ere is focal soft tissue swelling over the dorsum of the carpus. No evident underlying calcific matri x or erosion of the profiled dorsal cortices of the carpal bones. IMPRESSION: 1. Nonspecific soft tissue swelling over the dorsum of the carpus without evident calcite matrix or u nderlying osseous abnormality. 2. 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 Reviewed, dictated and finalized at location A. RVISOR LEAD REFINERY IMPRESSION: 1. Nonspecific soft tissue swelling over the dorsum of the carpus without evide nt calcite matrix or underlying osseous abnormality. 2. 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
== END ==
PROVIDERS: PCP Internal Medicine; Visit Provider Nurse Practitioner
DX: R22.31 Localized swelling, mass and lump, right upper limb (principal)
CPT/HCPCS: 73120

== ENCOUNTER → 2022-05-20 09:56 | Outpatient (CLI) | payer MEDICARE, SELFPAY ==
--- NOTE | ~2022-05-20 | DEXA_ITS ---
Bone Density Report Name: FARHANA RAMIREZ Age: 81 Sex: Female Ethnicity: White Date of : 1940 Indication: osteopenia; height loss; hysterectomy;postmenopausal Referring Provider: Juany Zelaya Study: Bone densitometry was performed. Exam Date: May 20, 2022 Accession number: [id number] Bone Density: Region BMD T-score Z-score Classification AP Spine (L1, L2, L4) 0.904 -1.2 1.5 Osteopenia Femoral Neck (Left) 0.506 -3.1 -0.8 Osteoporosis Total Hip (Left) 0.840 -0.8 1.3 Normal Femoral Neck (Right) 0.654 -1.8 0.6 Osteopenia Total Hip (Right) 0.770 -1.4 0.7 Osteopenia Total Hip Mean 0.805 -1.1 1.0 Osteopenia World Health Organization criteria for BMD impression classify patients as: Normal (T-score at or above -1.0), Osteopenia (T-score between -1.0 and -2.5), or Osteoporosis (T-score at or below -2.5). 10-year Fracture Risk: FRAX not reported because: Some T-score for Spine Total or Hip Total or Femoral Neck at or below -2.5 Previous Exams: Region Exam Age BMD T-score BMD Change BMD Change Date g/cm2 vs Baseline vs Previous AP Spine(L1, L2, L4) 05/20/2022 81 0.904 -1.2 -0.083 -0.020 03/17/2020 79 0.925 -1.0 -0.062* -0.015 03/08/2018 77 0.940 -0.9 -0.047* -0.024* 07/09/2014 73 0.964 -0.6 -0.023* -0.023* 07/06/2012 71 0.987 -0.4 Total Hip(Left) 05/20/2022 81 0.840 -0.8 -0.143 0.005 03/17/2020 79 0.835 -0.9 -0.148* -0.061* 03/08/2018 77 0.897 -0.4 -0.086* -0.023 07/09/2014 73 0.920 -0.2 -0.063* -0.063* 07/06/2012 71 0.983 0.3 Total Hip(Right) 05/20/2022 81 0.770 -1.4 -0.156 -0.005 03/17/2020 79 0.775 -1.4 -0.150* -0.087* 03/08/2018 77 0.861 -0.7 -0.064* -0.011 07/09/2014 73 0.873 -0.6 -0.053* -0.053* 07/06/2012 71 0.925 -0.1 *Denotes significance at 95% confidence level, LSC for AP Spine = 0.022 g/cm2, LSC for Total Hip = 0.027 g/cm2 Clinical Information Provided by Patient: Has used the following medications: Vitamin D, Calcium, MTV Has the following medical conditions: Hysterectomy Patient maximum height was 62.5 Menopause Age: 56 No regular weight bearing exercise Onset of menses at age 13 Number of children 3 Impression: The patient has osteoporosis, based on
== END ==
PROVIDERS: PCP Internal Medicine; Visit Provider Nurse Practitioner
DX: Z78.0 Asymptomatic menopausal state (principal); M85.88 Other specified disorders of bone density and structure, other site; M85.851 Other specified disorders of bone density and structure, right thigh; M81.0 Age-related osteoporosis without current pathological fracture
CPT/HCPCS: 77080

== ENCOUNTER 2022-09-20 09:37 | Outpatient (CLI) | payer MEDICARE, SELFPAY ==
[2022-09-20 14:42] LABS: Basophils Percent Auto 0.6 % (0.2-1.2); Eosinophils Percent Auto 1.1 % (0-4.4); Hematocrit 43.6 % (37.0-47.0); Hemoglobin 13.7 g/dL (12.0-15.0); Immature Granulocyte Absolute 0.01 K/mm3 (0.00-0.031); Immature Granulocyte Percent A 0.3 % (0-0.5); Lymphocytes Absolute Auto 1.48 K/mm3 (0.9-3.2); Lymphocytes Percent Auto 42.4 % (18.3-44.2); Mean Corpuscular HGB Conc 31.4 g/dl (32-36); Mean Corpuscular Hemoglobin 28.7 pg (26-34); Mean Corpuscular Volume 91.4 fl (80-100); Monocytes Absolute Auto 0.3 K/mm3 (0.1-0.6); Monocytes Percent Auto 7.7 % (2.6-8.5); Neutrophils Absolute Auto 1.7 K/mm3 (1.3-6.7); Neutrophils Percent Auto 47.9 % (45.5-73.1); Platelet Count Result 154 k/mm3 (150-375); Red Blood Count 4.77 M/mm3 (4.2-5.4); Red Cell Distribution Width 12.3 % (11.5-14.5); White Blood Count 3.5 K/mm3 (4.5-10.0)
[2022-09-20 15:24] LABS: Alanine Aminotransferase 25 U/L (6-35); Albumin Level 4.2 g/dL (3.5-5.1); Alkaline Phosphatase 65 U/L (38-126); Anion Gap 2 mmol/L (8-16); Aspartate Amino Transferase 33 U/L (14-36); Bilirubin,Total 0.7 mg/dL (0.2-1.3); Blood Urea Nitrogen 18 mg/dL (7-17); Calcium 9.4 mg/dL (8.4-10.2); Carbon Dioxide 33 mmol/L (22-30); Chloride 105 mmol/L (98-107); Cholesterol 158 mg/dL (0-200); Estimated Glomerular Filt Rate > 60; Glucose 109 mg/dL (65-110); HDL Direct 40 mg/dL; Potassium 4.8 mmol/L (3.4-5.0); Sodium 140 mmol/L (137-145); Triglycerides 88 mg/dL (<150)
[2022-09-20 15:40] LABS: LDL Cholesterol Direct 93 mg/dL
[2022-09-20 16:43] LABS: Hemoglobin A1C 5.6 % (<5.7)
== END 2022-09-20 09:38 | disposition home or self-care (01) ==
LOC: ANHGOSHLAB 09:40
PROVIDERS: PCP Internal Medicine; Visit Provider Nurse Practitioner
DX: E55.9 Vitamin D deficiency, unspecified (principal); E11.9 Type 2 diabetes mellitus without complications
CPT/HCPCS: 36415; 80053; 80061; 82306; 83036; 85025

== ENCOUNTER → 2022-12-23 09:47 | Outpatient (CLI) | payer MEDICARE, SELFPAY ==
--- NOTE | ~2022-12-23 | MM_ITS ---
EXAMINATION: MM screening ciro BI w waldemar HISTORY: Screening TECHNIQUE: Craniocaudal and mediolateral oblique 3-D tomosynthesis images were obtained and synthetic 2-D images were generated. CAD analysis was submitted and interpreted. COMPARISON: Comparison to multiple prior studies sequentially, with oldest reviewed study dated 09/27. BREAST PARENCHYMAL COMPOSITION: There are scattered areas of fibroglandular density. FINDINGS: There is no evidence of suspicious mass, calcification, or architectural distortion to sugg est malignancy in either breast. There has been no suspicious interval change. IMPRESSION: 1. No mammographic evidence of malignancy. 2. Recommend routine screening mammography in one year. BI-RADS Category 1: Negative Reviewed, dictated and finalized at location A.
== END ==
PROVIDERS: PCP Nurse Practitioner; Visit Provider Nurse Practitioner
DX: Z12.31 Encounter for screening mammogram for malignant neoplasm of breast (principal)
CPT/HCPCS: 77063; 77067

== ENCOUNTER 2023-09-25 08:56 | Outpatient (CLI) | payer MEDICARE, SELFPAY ==
[2023-09-25 12:28] LABS: Basophils Percent Auto 0.6 % (0.2-1.2); Eosinophils Percent Auto 0.8 % (0-4.4); Hematocrit 43.8 % (37.0-47.0); Hemoglobin 13.9 g/dL (12.0-15.0); Immature Granulocyte Absolute 0.01 K/mm3 (0.00-0.031); Immature Granulocyte Percent A 0.3 % (0-0.5); Lymphocytes Percent Auto 41.3 % (18.3-44.2); Mean Corpuscular HGB Conc 31.7 g/dl (32-36); Mean Corpuscular Hemoglobin 29.1 pg (26-34); Mean Corpuscular Volume 91.6 fl (80-100); Mean Platelet Volume 9.6 fl (7.4-10.4); Monocytes Absolute Auto 0.3 K/mm3 (0.1-0.6); Monocytes Percent Auto 6.9 % (2.6-8.5); Neutrophils Absolute Auto 1.8 K/mm3 (1.3-6.7); Neutrophils Percent Auto 50.1 % (45.5-73.1); Platelet Count Result 156 k/mm3 (150-375); Red Blood Count 4.78 M/mm3 (4.2-5.4); Red Cell Distribution Width 12.7 % (11.5-14.5); White Blood Count 3.6 K/mm3 (4.5-10.0)
[2023-09-25 12:38] LABS: Alanine Aminotransferase 18 U/L (6-35); Albumin Level 4.3 g/dL (3.5-5.1); Alkaline Phosphatase 69 U/L (38-126); Anion Gap 5 mmol/L (4-12); Aspartate Amino Transferase 36 U/L (14-36); Bilirubin,Total 0.7 mg/dL (0.2-1.3); Blood Urea Nitrogen 14 mg/dL (7-17); Calcium 9.6 mg/dL (8.4-10.2); Carbon Dioxide 29 mmol/L (22-30); Chloride 106 mmol/L (98-107); Cholesterol 154 mg/dL (0-200); Estimated Glomerular Filt Rate > 60; Glucose 108 mg/dL (65-110); HDL Direct 43 mg/dL; Sodium 140 mmol/L (137-145); Triglycerides 97 mg/dL (<150)
[2023-09-25 12:49] LABS: LDL Cholesterol Direct 92 mg/dL
[2023-09-25 12:53] LABS: Vitamin D 25 Hydroxy 48.3 ng/mL
[2023-09-25 19:03] LABS: Hemoglobin A1C 5.7 % (<5.7)
== END 2023-09-25 08:57 | disposition home or self-care (01) ==
LOC: ANHGOSHLAB 08:57
PROVIDERS: PCP Internal Medicine; Visit Provider Nurse Practitioner
DX: E11.9 Type 2 diabetes mellitus without complications (principal); E55.9 Vitamin D deficiency, unspecified
CPT/HCPCS: 36415; 80053; 80061; 82306; 83036; 85025

== ENCOUNTER 2023-12-26 10:20 | Outpatient (CLI) | payer MEDICARE, SELFPAY ==
--- NOTE | ~2023-12-26 | MM_ITS ---
EXAMINATION: MM screening [facility] BI w waldemar HISTORY: Screening TECHNIQUE: Craniocaudal and mediolateral oblique 3-D tomosynthesis images were obtained and synthetic 2-D images were generated. CAD analysis was submitted and interpreted. COMPARISON: Comparison to multiple prior studies sequentially, with oldest reviewed study dated 06/2018. BREAST PARENCHYMAL COMPOSITION: Dense: The breasts are heterogeneously dense, which may obscure small masses FINDINGS: There are developing nodular asymmetries centered in the upper outer quadrant of the right breast, middle third. The left breast is stable. No significant change compared with prior examinatio ns. IMPRESSION: 1. Developing right breast asymmetries. 2. Additional mammographic views and possible breast ultrasound are recommended. BI-RADS Category 0: Incomplete: Needs additional imaging evaluation. Reviewed, dictated and finalized at location B. IMPRESSION: 1. Developing right breast asymmetries. 2. Additional mammographic views and possible breast ultrasound are recommended . BI-RADS Category 0: Incomplete: Needs additional imaging evaluation.
== END 2023-12-26 10:21 | disposition home or self-care (01) ==
LOC: MICIMG 10:22
PROVIDERS: PCP Nurse Practitioner; Visit Provider Nurse Practitioner
DX: Z12.31 Encounter for screening mammogram for malignant neoplasm of breast (principal); R92.8 Other abnormal and inconclusive findings on diagnostic imaging of breast
CPT/HCPCS: 77063; 77067

== ENCOUNTER 2024-01-10 08:42 | Outpatient (CLI) | payer MEDICARE, SELFPAY ==
--- NOTE | ~2024-01-10 | MMUS_ITS ---
EXAMINATION: MM diagnostic ciro RT w waldemar, US breast RT complete HISTORY: Follow-up breast asymmetries TECHNIQUE: Additional 3-D tomosynthesis images of the right breast were performed and synthetic 2-D i mages were generated. CAD analysis was submitted and interpreted. High resolution complete right gabrielle st ultrasound was performed. COMPARISON: Comparison to multiple prior studies sequentially, with oldest reviewed study dated 11/19. BREAST PARENCHYMAL COMPOSITION: Not dense: There are scattered areas of fibroglandular density. FINDINGS: MAMMOGRAPHIC FINDINGS: Persistent nodular asymmetries scattered throughout the right breast. No discrete mass or architectur al distortion. There are benign right breast calcifications. ULTRASOUND: Complete US of all 4 quadrants of the right breast/s and retroareolar region was reviewed. At 3:00, 5 cm from the nipple there is focal echogenic lesion with posterior shadowing, consistent with calcifi cation. At 10:00, 3 cm from the nipple there is an oval hypoechoic 4 mm nodule with parallel orientat ion, no posterior features or internal vascularity at 11:00, 4 cm from the nipple there is an oval hy poechoic mass measuring 5 mm with circumscribed margins, parallel orientation, no internal vascularit y and no significant posterior features, likely benign. IMPRESSION: 1. Probable benign right breast masses. 2. Recommend 6 month follow-up Limited right breast ultrasound BI-RADS category 3, probably benign findings. Reviewed, dictated and finalized at location B. IMPRESSION: 1. Probable benign right breast masses. 2. Recommend 6 month follow-up Limited right breast ultrasound BI-RADS category 3, probably benign findings.
== END 2024-01-10 08:43 | disposition home or self-care (01) ==
PROVIDERS: PCP Nurse Practitioner; Visit Provider Nurse Practitioner
DX: N64.89 Other specified disorders of breast (principal)
CPT/HCPCS: 76641; 77061; 77065; G0279

== ENCOUNTER 2024-07-11 09:05 | Outpatient (CLI) | payer MEDICARE, SELFPAY ==
--- NOTE | ~2024-07-11 | US_ITS ---
US breast RT limited 07/11/2024 09:36 Indication: Follow-up probable benign right breast masses. Procedure: High-resolution Limited ultrasound of the right breast Comparison: 01/10/2024 Findings: At 3:00, 5 cm from the nipple there is an 5 mm intramammary lymph node. At 2:00, 6 cm from the nipple there is a coarse calcification measuring 5 mm with posterior shadowing. At 10:00, 3 cm fr om the nipple there is a 5 mm cyst. At 11:00, 7 cm from the nipple there is an oval circumscribed par allel oriented 4 mm hypoechoic mass without internal vascularity or posterior features, likely benign . At 11:00, 4 cm from the nipple there is an oval hypoechoic 2 mm mass without internal vascularity. At 11:00, 4 cm from the nipple there is a irregular shaped hypoechoic 5 mm mass, not definitely seen on prior examination. No internal vascularity. Impression: 1: New irregular shaped 5 mm right breast mass at 11:00, 5 cm from the nipple. BI-RADS CATEGORY 4-SUSPICIOUS ABNORMALITY RECOMMENDATION: Ultrasound-guided right breast biopsy recommended. . Reviewed, dictated and finalized at location A. Impression: 1: New irregular shaped 5 mm right breast mass at 11:00, 5 cm from the nipple. BI-RADS CATEGORY 4-SUSPICIOUS ABNORMALITY RECOMMENDATION: Ultrasound-guided right breast biopsy recommended. .
== END 2024-07-11 09:06 | disposition home or self-care (01) ==
LOC: MICIMG 09:06
PROVIDERS: PCP Nurse Practitioner; Visit Provider Nurse Practitioner
DX: N63.15 Unspecified lump in the right breast, overlapping quadrants (principal); N64.89 Other specified disorders of breast
CPT/HCPCS: 76642

== ENCOUNTER 2024-08-21 08:21 | Outpatient (CLI) | payer MEDICARE, SELFPAY ==
--- NOTE | ~2024-08-21 | MMUS_ITS ---
MM post biopsy diagnostic RT, US breast biopsy RT w image EXAMINATION: US GUIDED NEEDLE BIOPSY WITH VACUUM ASSISTANCE DATE: 08/21/2024 10:27 CDT INDICATION: Right breast mass seen on prior examination. Ultrasound-guided core biopsy is requested to evaluate for malignancy. BREAST PARENCHYMAL COMPOSITION: Dense: The breasts are heterogeneously dense, which may obscure small masses TECHNIQUE AND FINDINGS: The risks and potential benefits of the procedure were discussed with the patient, and written inform ed consent was obtained. After sterile preparation of the right breast, 1% lidocaine was utilized fo r local anesthesia. 1% lidocaine with epinephrine was used for deep anesthesia. A 10G vacuum-assisted biopsy gun needle was advanced through to the outer edge of the region of inter est from a superior approach utilizing sonographic guidance. A total of 4 tissue core samples were o btained through the lesion. An Inrad tissue marker clip was then placed at the biopsy site. Hemostas is was achieved. The patient tolerated procedure well and there was no evidence of immediate complication. The patien t was given verbal instructions partly is from the department. Right breast mammograms to document t issue marker clip placement. The tissue samples were submitted to surgical pathology for histologic a nalysis. IMPRESSION: 1. Successful ultrasound-guided vacuum-assisted biopsy of right breast mass with post procedure mamm ogram for marker placement. Please refer to pathology report for histologic analysis. Reviewed, dictated and finalized at location B. IMPRESSION: 1. Successful ultrasound-guided vacuum-assisted biopsy of right breast mass wi th post procedure mammogram for marker placement. Please refer to pathology rep ort for histologic analysis.
--- OUTSIDE RECORDS SUMMARY | 2024-08-21 09:04 | XMS_ITS | Referral Summary ---
Author Organization [facility] [address] Address [address] [place] [address] Care Team Providers Care Strap Cutting Machine Operator Name Role Phone Michael Sharpe DO Primary Care Provider [phone] Allergies Active Allergy Reactions Criticality Noted Date Comments Penicillins Rash Medium 01/09/2015 Social History Tobacco Use Types Packs/Day Years Used Date Smoking Tobacco: Never Assessed Personal Safety Answer Date Recorded Getting School Help Needed Not on file 06/16 Comments Unknown Sex and Gender Information Value Date Recorded Sex Assigned at Not on file 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
--- OUTSIDE RECORDS SUMMARY | 2024-08-21 09:04 | XMS_ITS | Data Portability ---
Author Organization [facility] Address [address] [place] [id number] Assessment No assessment recorded. Plan of Treatment Reminders Order Date Submit Date Provider Last Modified By Organization Details Last Modified Time Details Appointments None record ed. Lab None record ed. Referral None record ed. Procedures None record ed. Surgeries None record ed. Imaging None record ed. Medication Orders None record ed. Patient TargetsNo targets recorded. Patient InstructionsNo instructions recorded. Reason for Referral None Reported. Medical Equipment None Reported. Vitals None Recorded Social History None recorded. Functional Status None recorded. Mental Status None recorded. Family History Nothing Reported. Medical History No medical history recorded. Gynecological HistoryNo gynecological history recorded. Obstetrics History GPAL:G 0 P 0 0 0 0 Immunizations Vaccine Type Date Status Note Provider Nam e and Address Organization Details Recorded Time COVID-19, mRNA, LNP-S, PF, 100 mcg/0.5mL dose or 50 mcg/0.25mL dose 05/15/2020 completed Florence Franklin [facility], [facility] 05/15/2020 16:03:20 COVID-19, mRNA, LNP-S, PF, 100 mcg/0.5mL dose or 50 mcg/0.25mL dose 06/12/2020 completed Kapil Alexander [facility], [facility] 06/12/2020 14:26:17 Past Encounters Encounter ID Performer Location Encounter Start Date Encounter Closed Date Diagnosis/Indication Diagnosis SNOMED-CT Code Diagnosis ICD10 Code Diagnosis Note [id number] MD Brenton Mckenzie 14 IM [address] [facility] [place] [address] 05/15/2020 12:54:22 05/18/2020 07:37:50 Administration of SARS-CoV-2 antigen vaccine [id number] Z23 [id number] MD Brenton Mckenzie 14 IM 4 [place] [address] 06/12/2020 12:00:45 06/15/2020 13:23:05 Administration of SARS-CoV-2 antigen vaccine [id number] [id number] Health Concerns Section Related Observation LastModified by Organization Detai ls LastModified Time None Recorded Concern Status LastModified by Organization Details LastModified Time None Recorded Advance Directives Directive None Recorded Payers Encounter Date Sequence Insurance Name Policy Number Policy Jiménez Covered Member ID Jiménez Member ID Guarantor Name 05/15/2020 1 [place] Cristina Moran [id number] Cristina Moran 05/15/2020 2 [facility] (MEDICARE REPLACEMENT/A DVANTAGE - HMO) [id number] Cristina Moran [id number] Cristina Moran 06/12/2020 1 [place] Cristina Moran [id number] Cristina Moran 06/12/2020 2 [facility] (MEDICARE REPLACEMENT/A DVANTAGE - HMO) [id number] Cristina Moran [id number] Cristina Moran OBGyn Episode No OBEpisode recorded.
--- OUTSIDE RECORDS SUMMARY | 2024-08-21 09:04 | XMS_ITS | Clinical Summary ---
Author Organization [facility] [address] Address [address] [place] [address] Care Team Providers Care Dance Master Name Role Phone Michael Sharpe DO Primary Care Provider [phone]- [phone] Allergies Active Allergy Reactions Criticality Noted Date Comments Penicillins Rash Medium 01/09/2015 Social History Tobacco Use Types Packs/Day Years Used Date Smoking Tobacco: Never Assessed Personal Safety Answer Date Recorded Getting School Help Needed Not on file 06/16 Comments Unknown Sex and Gender Information Value Date Recorded Sex Assigned at Not on file 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
--- OUTSIDE RECORDS SUMMARY | 2024-08-21 09:05 | XMS_ITS | CONTINUITY OF CARE DOCUMENT ---
Author Name cyndi hanna Address Unknown Organization [facility] Address [address] [facility] [facility] [address] [place] [address] Phone [phone] Care Team Providers Care Aerial Gunner Superintendent Name Role Phone Marco Palacio MD Unavailable [phone] Marco Palacio MD Unavailable [phone] AGUSTO JEFF DO Unavailable INSURANCE PROVIDERS Payer name Policy type / Coverage type [place] red democrat ID [employer] MEDICARE COMPLETE HMO Other [id number]
--- OUTSIDE RECORDS SUMMARY | 2024-08-21 09:05 | XMS_ITS | Data Portability ---
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 We discussed possible treatment options including observation, joint injection/aspirati on, and surgical intervention. Patient was advised that a joint injection/aspirati on would likely elected relieve her swelling temporarily. Patient to continue with observation. She may follow-up as needed. [email or web address] Not available 06/28/2022 17:18:29 10/06/2022 10/06/2022 By history and exam the patient is noted have right sacroiliac pain and right hip trochanteric bursitis. We talked about treatment options today in detail she wanted proceed with cortisone therefore under sterile conditions I injected the patient's right sacroiliac person and the patient's right hip trochanteric bursa in the office with 4 cc 0.5% ropivacaine and 20 mg of Kenalog each. Patient tolerated procedure well. We will do also do a course of oral prednisone I will see her back in 6 weeks to see what impact treatment has had. I offered her formal therapy she declined she states she would rather try it on her own at home we talked about the stretching exercises as well. She voiced understanding agrees above plan she will call for any further problems difficulties or questions. Not available 10/06/2022 14:08:53 08/19/2024 08/19/2024 The patient has right sacroiliac pain and right hip trochanteric bursitis. 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 We talked about treatment options in detail today she would like to proceed with Celebrex 200 mg daily. 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 She wanted to try 2 shots of cortisone therefore under sterile conditions I injected the patient's right hip trochanteric bursa of the right sacroiliac bursa in the office with 4 cc of 0.5% bupivacaine and 20 mg of Kenalog each. The patient tolerated both injections well. I will see her back in 6 weeks to see how she is doing she voiced understanding and agreed with the above plan if her symptoms suddenly worsen or change she is instructed to call. Not available 08/19/2024 12:03:05 Plan of Treatment Reminders Order Date Submit Date Provider Last Modified By Organization Details Last Modified Time Details Appointments None recorded. Lab None recorded. Referral None recorded. Procedures injection/a spiration joint/bursa (PROC) 2024 025 [email or web address] In-Office Order, Internal Use Only DO Not Attach Compendium DO Not Attach Compendium, Do Not Delete/merge, [id number] 5 11:47:22 injection/a spiration joint/bursa (PROC) 2024 025 [email or web address] In-Office Order, Internal Use Only DO Not Attach Compendium DO Not Attach Compendium, Do Not Delete/merge, [id number] 11:47:21 injection/a spiration joint/bursa (PROC) - in office procedure, administere d by provider 2022 023 [email or web address] In-Office Order, Internal Use Only DO Not Attach Compendium DO Not Attach Compendium, Do Not Delete/merge, [id number] 14:07:40 injection/a spiration joint/bursa (PROC) - in office procedure, administere d by provider 2022 023 [email or web address] In-Office Order, Internal Use Only DO Not Attach Compendium DO Not Attach Compendium, Do Not Delete/merge, [id number] 14:07:40 Surgeries None recorded. Imaging XR, hip + pelvis, unilateral 2024 025 [email or web address] [facility] [place], [address], [place], [address], 5 12:11:58 XR, hip, unilateral, 2 or 3 view 2022 023 [email or web address] [facility] [place], [address], [place], [address], 3 14:51:17 Medication Orders bupivacaine HCl 0.5 % (5 mg/mL) injection solution 2024 025 [email or web address] [facility] #[id number], [address] [place], [place], [id number], 5 12:05:26 Kenalog 10 mg/mL suspension for injection 2024 025 [email or web address] [facility]19744, [address], [id number], 5 12:05:26 celecoxib 200 mg capsule 2024 025 [email or web address] [facility] #76112, [address], [id number], 5 12:05:26 bupivacaine HCl 0.5 % (5 mg/mL) injection solution 2024 025 [email or web address] [facility] #83404, [address], [id number], 5 12:05:26 Kenalog 10 mg/mL suspension for injection [address] [facility]37, [address], [place], [place], [id number], 5 12:05:26 Kenalog 10 mg/mL suspension for injection [address] [facility]11446, [address] [place], [id number], 3 14:51:17 ropivacaine (PF) 5 mg/mL (0.5 %) injection solution [address] [facility]83879, [address] [place], [place], [id number], 3 14:51:17 prednisone 10 mg tablets in a dose pack [address] [facility]68315, [address], [id number], 3 14:51:17 Kenalog 10 mg/mL suspension for injection [address] [facility]22173, [address], [id number], 3 14:51:17 ropivacaine (PF) 5 mg/mL (0.5 %) injection solution [address] [facility][id number], [address], [id number], 3 14:51:17 Patient TargetsNo targets recorded. Patient InstructionsNo instructions recorded. Reason for Referral None Reported. Results Created Date Observation Date Name Description Value Unit Range Abnormal Flag Note LastModifiedBy Organization Detail LastModifiedTime 06/03/1905/04/2022 XR, hand, 2 view No observ ation record ed. [email or web address] Not Available 05/2022 14:32:44 10/07/19 23 XR, hip, unila teral , 2 or 3 view No observ ation record ed. [email or web address] [facility] [place] [address], [place], [address], 10/06/2022 14:07:42 08/20/19 25 XR, hip + pelvi s, unila teral No observ ation record ed. [email or web address] [facility] [place] [address], [place], [address], 08/19/2024 12:03:48 Result Notes None recorded. 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 Active Not Available [facility] 3 12:53:03 Enthesopat hy of hip region 35086762 Active Not Available [facility] 3 12:53:03 Osteoarthr itis 601987892 Active Not Available [facility] 3 12:53:03 Osteoarthr osis of the carpometac arpal joint of the thumb 26361291 Active 2022 PRINCESS Trujillo [address], [place], [address] , [employer] [facility] [employer] 3 17:12:14 Ganglion cyst of right wrist 0424969419505 09 Active 2022 PRINCESS Trujillo [address], [address], [place], [address] , [facility] [employer] [facility] 3 17:12:34 Synovial cyst of wrist 482717503 Active 2022 PRINCESS Trujillo [address], [place], [address] , [facility] [employer] [facility] 3 17:20:01 Pain of right hip joint 9802769089499 02 Active 2022 Linh Aburto null, [facility] [employer] [facility] 3 13:16:10 Pain in right sacroiliac joint 7108094219336 9107 Active 2022 Nilsa Eng CNA null, [facility] [employer] [facility] 3 13:54:34 Trochanter ic bursitis of right hip 7770529599260 00 Active 2022 PRINCESS Oleary [address], [place], [address] , [facility] [employer] [facility] 3 14:09:29 Osteoarthr itis of right hip joint 6931897807539 07 Active 2024 PRINCESS Oleary [address], [place], [address] , [facility] [employer] [facility] 5 12:04:15 Problem Notes None recorded. Procedures Surgical History None recorded. Imaging Results Imaging Date Name Status LastModified by Organiz ation Details LastModified Time 05/04/2022 XR, hand, 2 view completed [email or web address] Information not available 06/02/2022 14:32:44 10/06/2022 XR, hip, unilateral, 2 or 3 view completed [email or web address] [facility] [place] [address], [place], [address], 10/06/2022 14:07:42 08/19/2024 XR, hip + pelvis, unilateral completed [email or web address] [facility] [place] [address], [place], [address], 08/19/2024 12:03:48 Procedure Notes None recorded. Medical Equipment None Reported. Allergies Allergen ID Allergen Name Allergen Category Reaction Reaction Severity Criticality Documentation Date Start Date Code Code System Note Provider Name and Address Organization Details Recorded Time 64699 Product containin g penicilli n (product) medicatio n Not available Not available Not available 06/28/2022 64003 8001 SNOMED Laura Gooden, ALFREDO amaya, [place] [facility] [place] [facility] 3 14:36:34 Medications Name Sig Start Date Stop Date Status Note LastModified by Organization Details LastModified Time celecoxib 200 mg capsule Take 1 capsule every day by oral route. 2024 active Not Available Not Available Not Avai lable cyclobenzap rine 10 mg tablet TK 1 T PO D BEFORE BED 06/20 completed Not Available Not Available Not Available latanoprost 0.005 % eye drops INSTILL 1 DROP IN BOTH EYES DAILY AT BEDTIME active Not Available Not Available No t Available prednisone 10 mg tablet TAKE 1 TABLET BY MOUTH TWICE DAILY 08/19 completed Not Available Not Available Not Available nitrofurant oin macrocrysta l 50 mg capsule TAKE 1 CAPSULE BY MOUTH AT BEDTIME active Not Available Not Available No t Available lisinopril 20 mg tablet TAKE 1 TABLET BY MOUTH EVERY MORNING active Not Available Not Available No t Available bupivacaine HCl 0.5 % (5 mg/mL) injection solution Take 20 mg by injection route. 2024 active Not Available Not Available Not Avai lable alendronate 70 mg tablet TAKE 1 TABLET BY MOUTH WEEKLY ON AN EMPTY STOMACH AT LEAST 30 MINUTES BEFORE OTHER MEDICATIO N AND FOOD. STAY UPRIGHT FOR 30 MINUTES AFTER TAKING active Not Available Not Available No t Available clindamycin HCl 150 mg capsule TK 4 CS PO 1 H BEFORE OFFICE VISIT 06/20 completed Not Available Not Available Not Available ciprofloxac in 500 mg tablet TAKE 1 TABLET BY MOUTH TWICE DAILY 06/28 completed Not Available Not Available Not Available sulfamethox azole 800 mg-trimetho prim 160 mg tablet 06/20 completed Not Available Not Available Not Available tramadol 50 mg tablet TAKE 1 TABLET BY MOUTH EVERY 6 HOURS NEEDED FOR PAIN 06/28 completed Not Available Not Available Not Available simvastatin 40 mg tablet TAKE 1 TABLET BY MOUTH EVERY MORNING active Not Available Not Available No t Available prednisone 10 mg tablets in a dose pack Take 1 tab by mouth, 3 times a day for 3 daysTake 1 tab by mouth 2 times a day for 2 daysTake 1 tab by mouth once a day for 1 day 2022 active Not Available Not Available Not Avai lable prednisolon e acetate 1 % eye drops,suspe nsion 06/20 completed Not Available Not Available Not Available Kenalog 10 mg/mL suspension for injection Take 20 mg by injection route. 2024 active [facility]: 0003- 0494- 20 Not Available Not Available Not Available Proctozone- HC 2.5 % topical cream perineal applicator 06/20 completed Not Available Not Available Not Available ibuprofen 400 mg tablet 06/20 completed Not Available Not Available Not Available omeprazole 20 mg capsule,del ayed release TAKE 1 CAPSULE BY MOUTH EVERY MORNING active Not Available Not Available No t Available timolol maleate 0.5 % eye drops 06/20 completed Not Available Not Available Not Available timolol maleate 0.5 % eye gel forming solution 06/20 completed Not Available Not Available Not Available nitrofurant oin monohydrate /macrocryst als 100 mg capsule 06/20 completed Not Available Not Available Not Available Boostrix Tdap 2.5 Lf unit-8 mcg-5 Lf/0.5 mL intramuscul ar syringe ADM 0.5ML IM UTD 06/20 completed Not Available Not Available Not Available melatonin active Not Available Not Lorena ilable Not Available potassium acetate 08/19 completed Not Available Not Available Not Available omeprazole active Not Available Not Av ailable Not Available simvastatin active Not Available Not A vailable Not Available Prevnar 13 (PF) 0.5 mL intramuscul ar syringe ADM 0.5ML IM UTD 06/20 completed Not Available Not Available Not Available ropivacaine (PF) 5 mg/mL (0.5 %) injection solution Take 20 mg by injection route. 2022 active [facility] [phone] -[phone] Not Available Not Available Not Available Myrbetriq 50 mg tablet,exte nded release TAKE 1 TABLET BY MOUTH DAILY. MONITOR BLOOD PRESSURE WEEKLY. 06/28 completed Not Available Not Available Not Available Fluzone High-Dose (PF) 180 mcg/0.5 mL intramuscul ar syringe ADM 0.5ML UTD 06/20 completed Not Available Not Available Not Available Fluvirin 45 mcg (15 mcg x 3)/0.5 mL intramuscul ar suspension ADM 0.5ML UTD 06/20 completed Not Available Not Available Not Available Fluzone High-Dose 2014- (PF) 180 mcg/0.5 mL intramuscul ar syringe 06/20 completed Not Available Not Available Not Available Shingrix (PF) 50 mcg/0.5 mL intramuscul ar suspension, kit 06/20 completed Not Available Not Available Not Available Fluzone High-Dose 7799-9232 (PF) 180 mcg/0.5 mL intramuscul ar syringe 06/20 completed Not Available Not Available Not Available Vitals Date Recorded Body height Body mass index (BMI) Body weight Provider Name and Address Organization Details Last Updated DateTime 06/28/2022 144.78 cm 35.1 kg/m2 72710.96 g ALFREDO Patino [employer] 06/28/2022 14:36:18 Date Recorded Body height Body mass index (BMI) Body weight Provider Name and Address Organization Details Last Updated DateTime 10/06/2022 142.24 cm 36.3 kg/m2 83642.96 heber Marquesison [employer] 10/06/2022 13:15:30 Date Recorded Body height Body mass index (BMI) Body weight Provider Name and Address Organization Details Last Updated DateTime 08/19/2024 149.86 cm 29.7 kg/m2 15821.08 g Pao Leals [employer] 08/19/2024 11:20:39 Social History Question Answer Notes LastModified by Organizat ion Details LastModified Time Tobacco Smoking Status Unknown If Ever Smoked ALFREDO Patino, [employer] 06/28/2022 14:41:00 What Was The Date Of Your Most Recent Tobacco Screening? 06/28/2022 [email or web address] Information not available 06/28/2022 Sex: Unknown Functional Status Question Answer Note LastModified by Organization D etails LastModified Time What is your level of alcohol consumption? None Information not available 06/28/2022 Mental Status None recorded. Family History Relationship Description Onset Age of this Age Resolved Age Notes LastModified by Organization Details LastModified Time Father Heart disease [email or web address] Not available 2022 14:40:21 Father Family history of malignant neoplasm [email or web address] Not available 2022 14:40:30 Father Hypertensive disorder [email or web address] Not available 2022 14:40:40 Medical History Condition Response ARTHRITIS Y URINARY/BLADDER/KIDNEY PROBLEMS Y Gynecological HistoryNo gynecological history recorded. Obstetrics History GPAL:G 0 P 0 0 0 0 Past Encounters Encounter ID Performer Location Encounter Start Date Encounter Closed Date Diagnosis/Indication Diagnosis SNOMED-CT Code Diagnosis ICD10 Code Diagnosis Note [id number] Jonatan Gardner MD [facility] [place] [address] [place] [address] 06/28/2022 14:07:18 06/28/2022 15:02:39 Osteoarthrosis of the carpometacarpal joint of the thumb 61954413 M18.9 Synovial c yst of wrist 277816373 M71.339 [id number] Sony Hernandez MD [facility] [place] [address] [place] [address] 10/06/2022 13:11:21 10/06/2022 14:50:41 Pain of right hip joint 4334293978 65063 M25.551 Pain in ri ght sacroiliac joint 6262363939 1903223 M53.3 Trochanter ic bursitis of right hip 3315111902 30262 M70.61 [id number] Agusto Feliz MD [facility] [place] [address] [place] [address] 08/19/2024 10:53:33 08/19/2024 12:11:58 Pain of right hip joint 1479729497 55863 M25.551 Trochanter ic bursitis of right hip 5853472820 82401 M70.61 Pain in ri ght sacroiliac joint 1530376466 5516150 M53.3 Osteoarthr itis of right hip joint 9937475797 70292 M16.11 Health Concerns Section Related Observation LastModified by Organization Detai ls LastModified Time None Recorded Concern Status LastModified by Organization Details LastModified Time None Recorded Advance Directives Directive None Recorded Payers Encounter Date Sequence Insurance Name Policy Number Policy Jiménez Covered Member ID Jiménez Member ID Guarantor Name 06/28/2022 1 [facility] - [employer] - [employer] - MEDICARE COMPLETE PLAN 2 (MEDICARE REPLACEMENT HMO) [id number] Cristina Guajardo Dean [id number] Cristina B Dean 10/06/2022 1 [facility] - [employer] - [employer] - MEDICARE COMPLETE PLAN 2 (MEDICARE REPLACEMENT HMO) [id number] Cristina Guajardo Dean [id number] Cristina Bennett Dean 08/19/2024 1 [facility] - [employer] - [employer] - MEDICARE COMPLETE PLAN 2 (MEDICARE REPLACEMENT HMO) [id number] Cristina Guajardo Dean [id number] Cristina Moran Notes Date Note Type Note Provider Name and Address Organization Details Recorded Time 06/28/2022 text/html 81 year old joleen peck who presents to the clinic with swelling of her right wrist. Her swelling started about 2-3 month ago, without injury. She has pain with thumb motion and wrist flexion/extension. She has occasional numbness and tingling in her fingertips. She denies any erythema or warmth of the swelling. She denies fever or chills. PRINCESS Trujillo [address] [place] [address], [place] [address], [place], [address], [facility] 06/28/2022 17:21:10 10/06/2022 text/html patient returns complaining of low back pain on the right as well as tenderness over the right trochanteric region. She has aching pain that radiates into the buttock from the right lower back also some radiation of her pain from the right hip laterally about half way down the thigh. Denies any significant groin pain but does have some chronic stiffness in the hip. Has no weakness no neurovascular deficits no bowel or bladder symptoms. She has aching pain that limits what she can do during the day she also has trouble sleeping on her right side at night. Denies any specific trauma or injury has had pain for years recently has had a flare up. States years ago she did have a shot of cortisone which gave her good relief in the right hip trochanteric region. She knows she has some osteoarthritis in her back as well thinks she may have a little in a hip. Pain is worse with activities and relieved by rest reports the pain about a 7 on a scale 1-10 she has tried heat and stretching and anti-inflammatories without significant relief comes in today for initial evaluation treated the above issues. PRINCESS Oleary [address], [place], [address], [email or web address] 10/06/2022 14:09:56 08/19/2024 text/html The patient is a n 83-year-old female who presents with a several week history of right hip and right sacroiliac pain. I saw her for this almost 2 years ago and we did shots of cortisone and gave her some prednisone that is worked pretty well for her the pain was tolerable at that point. She denies any new trauma or injury recently it started bothering her again. She is having quite a bit of pain she states it is a 10 on a scale of 1-10 but is able to ambulate and appears to be in no acute distress. She has pain in the right sacroiliac region that radiates to the buttock somewhat but not down the leg it does come around to the side of the hip over the trochanteric region. She has little bit of groin pain she does have some moderate primary osteoarthritis here but that is tolerable her main complaint is right sacroiliac and right trochanteric pain she is tender there has trouble sleeping at night. She can not stand or walk for long periods because of her significant symptoms. She denies any bowel or bladder symptoms no weakness or numbness or tingling or radicular pain down the leg. She comes in today for initial evaluation and treatment. New past medical history sheet was reviewed and signed on the intake sheet of today's date drug allergies current medications family social history previous surgical history 10 point review of systems was reviewed and discussed in detail today with the patient. The patient is not currently taking any oral anti-inflammatory medication except for some occasional ibuprofen. PRINCESS Oleary [address], [place], [address], [facility] [employer] [facility] [employer] 08/19/2024 12:05:03 OBGyn Episode No OBEpisode recorded.
--- OUTSIDE RECORDS SUMMARY | 2024-08-21 09:05 | XMS_ITS | Continuity of Care Document ---
Author Organization [facility] [place] [address] [place] [address] Phone Care Team Providers Care Rags Laborer Name Role Phone Rosalie Triana Unavailable Unavailable Procedures Procedure Date Eye Exam & Treatment Optic Nerve Head Eval IPO Reduced 15% Refraction Visual Field Examination-Professional Au Visual Field Examination(s) Office/outpatient Visit, Est Fundus Photography W/ Report Office/outpatient Visit, Est IPO Reduced 15% Optic Nerve Head Eval Visual Field Examination(s) Office/outpatient Visit, Est Optic Nerve Head Eval Office/outpatient Visit, Est Optic Nerve Head Eval Visual Field Examination(s) Office/outpatient Visit, Est Advance Directives Directive Yes / No Effective Date File Name No Information Encounters Encounter Description Practice Location Reason(s) For Visit Diagnoses Date Provider Providers Copied on Encounter [facility], [address], [place], [place], [address], [place] tel:[phone] QIB [facility] No Information Oct-2 1-201 0 Kamilah Wiggins. [address] , [address], [place], [address], [place]. tel:[phone] [facility], [address], [place], [place], [address], [place] tel:[phone] [facility] [place] No Information 6-201 0 Kamilah Avila [address] , [address], [place], [place], [facility], . tel:[phone] Referring Provider: Rosalie Hudson, [address], [place], [facility]. tel:[phone] [facility], [address] [place] [address] [address], [place], [place], [address], [phone] [facility] [place] No Information 0-201 0 Kamilah Wiggins. [address] , [address], [place], [facility], . tel:[phone] Referring Provider: Rosalie Hudson, [address], [place], [facility]. tel:[phone] Office/outpat ient Visit, [facility], [address] [place] [address] [address], [place], [place], [address], [place] [phone] [facility] [place] No Information 5-201 0 [facility]ilah [facility]ila [facility] [address] , [address], [place], [facility], [place]. tel:[phone] Referring Provider: Rosalie Hudson, [address], [place], [facility]. tel:[phone] Office/outpat ient Visit, [facility], [address] [place] [address] [address], [place], [place], [address], [place] tel:[phone] [facility] [place] No Information 5-200 9 Kamilah Avila [address] , [address], [place], [facility], . tel:[phone] [facility], [address], [place], [place], [address], [place] tel:[phone] [facility] No Information 9 Kamilah Avila [address] , [address], [place], [facility], . tel:[phone] Referring Provider: Rosalie Hudson, [address], [place], [facility]. tel:[phone] Office/outpat ient Visit, [facility] [facility], [address], [place], [place], [address], [place] tel:[phone] [facility] No Information 8 Kamilah Wiggins. [address] , [address], [place], [facility], . tel:[phone] Office/outpat ient Visit, [facility], [address], [place], [place], [address], [place] tel:[phone] [facility] No Information 8 Kamilah Wiggins. [facility] [address] , [address], [place], [facility], [place]. tel:[phone] [facility], [address], [place], [place], [address], [place] tel:[phone] [facility] No Information 7 Kamilah Wiggins. [address] , [address], [place], [facility], [place]. tel:[phone] Referring Provider: Rosalie Hudson, [address], [place], [facility]. tel:[phone] Office/outpat ient Visit, [facility], [address], [place], [place], [address], [place] tel:[phone] SEC [facility] No Information 7 Kamilah Wiggins. [address] , [address], [place], [address], [place]. tel:[phone] Family History Family Member Type Diagnosis Age At Onset No Information Payers Payer name Insurance type Covered alliance party ID Authoriza tipam(s) [place] [id number] [facility] [id number] Social History Type Description Quantity Date Captured Comments Sex Female Smoking Status No Information Chief Complaint And Reason For Visit No Information Reason For Referral Reason For Referral No Information History Of Present Illness Encounter Date Complaint History Of Prese nt Illness No Information Functional Status Date Functional Assessmen t No Information Instructions Date Instruction Additional Infor mation No Information Assessments Type Assessment Date No Information Patient Care Teams Name Effective Dates (start - stop) Status Members No Information
== END 2024-08-21 08:22 | disposition home or self-care (01) ==
LOC: ANHIMG 08:23
PROVIDERS: PCP Nurse Practitioner; Visit Provider Surgery
DX: N63.11 Unspecified lump in the right breast, upper outer quadrant (principal); N64.89 Other specified disorders of breast; N63.15 Unspecified lump in the right breast, overlapping quadrants
CPT/HCPCS: 19083; 77065; 88305; A4648

== ENCOUNTER 2024-10-02 09:01 | Outpatient (CLI) | payer MEDICARE, SELFPAY ==
--- OUTSIDE RECORDS SUMMARY | 2024-10-02 09:07 | XMS_ITS | Clinical Summary ---
Author Organization [facility] [place] [address] Address [address] [place] [address] Care Team Providers Care Power Press Tender Name Role Phone Michael Sharpe DO Primary Care Provider [phone] Allergies Active Allergy Reactions Criticality Noted Date Comments Penicillins Rash Medium 01/09/2015 Social History Tobacco Use Types Packs/Day Years Used Date Smoking Tobacco: Never Assessed Personal Safety Answer Date Recorded Getting School Help Needed Not on file 06/16 Comments Unknown Sex and Gender Information Value Date Recorded Sex Assigned at Not on file 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
--- OUTSIDE RECORDS SUMMARY | 2024-10-02 09:07 | XMS_ITS | Data Portability ---
Author Organization [place] [facility], Main Office Address [address] [place] [address] Care Team Providers Care Budget Coordinator Name Role Phone AGUSTO JEFF Primary Care Provider [phone] AGUSTO JEFF Referring Provider [phone] Assessment Encounter Date Assessment Date Assessment LastModified [...] DO Not Attach Compendium, Do Not Delete/merge, [id number] 5 11:47:22 injection/a spiration joint/bursa (PROC) 2024 025 [email or web address] In-Office Order, Internal Use Only DO Not Attach Compendium DO Not Attach Compendium, Do Not Delete/merge, [id number] 5 11:47:21 injection/a spiration joint/bursa (PROC) - in office procedure, administere d by provider 2022 023 [email or web address] In-Office Order, Internal Use Only DO Not Attach Compendium DO Not Attach Compendium, Do Not Delete/merge, [id number] 3 14:07:40 injection/a spiration joint/bursa (PROC) - in office procedure, administere d by provider 2022 023 [email or web address] In-Office Order, Internal Use Only DO Not Attach Compendium DO Not Attach Compendium, Do Not Delete/merge, [id number] 14:07:40 Surgeries None recorded. Imaging XR, hip + pelvis, unilateral 2024 025 [email or web address] [facility] [place], [address], [place], [address], 5 12:11:58 XR, hip, unilateral, 2 or 3 view 2022 023 [email or web address] [facility] [place], [address], [place], [address], 3 14:51:17 Medication Orders bupivacaine HCl 0.5 % (5 mg/mL) injection solution 2024 025 [email or web address] [facility] #87[facility], [address], [place], [id number], 5 12:05:26 Kenalog 10 mg/mL suspension for injection 2024 025 [email or web address] [facility] #90179, [address], [place], [id number], 5 12:05:26 celecoxib 200 mg capsule 2024 025 [email or web address] [facility] #52475, [address] [place], [id number], 5 12:05:26 bupivacaine HCl 0.5 % (5 mg/mL) injection solution 2024 025 [email or web address] [facility] #74014, [address] [place], [place], [id number], 5 12:05:26 Kenalog 10 mg/mL suspension for injection [address] [facility]35915, [address], [place], [place], [id number], 5 12:05:26 Kenalog 10 mg/mL suspension for injection [address] [facility]78179, [address], [place], [place], [id number], 3 14:51:17 ropivacaine (PF) 5 mg/mL (0.5 %) injection solution [address] [facility]27463, [address] [place], [id number], 3 14:51:17 prednisone 10 mg tablets in a dose pack [address] [facility]24733, [address] [place], [place], [id number], 3 14:51:17 Kenalog 10 mg/mL suspension for injection [address] [facility]71885, [address] [place], [id number], 3 14:51:17 ropivacaine (PF) 5 mg/mL (0.5 %) injection solution [address] [facility]21146, [address], [place], [place], [id number], 3 14:51:17 Patient TargetsNo targets recorded. Patient InstructionsNo instructions recorded. Reason for Referral None Reported. Results Created Date Observation Date Name Description Value Unit Range Abnormal Flag Note LastModifiedBy Organization Detail LastModifiedTime 06/03/19 23 05/04/2022 XR, hand, 2 view No observ ation record ed. [email or web address] Not Available 05/2022 14:32:44 10/07/19 23 XR, hip, unila teral , 2 or 3 view No observ ation record ed. [email or web address] [facility] [place] [address], [place], [address], 10/06/2022 14:07:42 08/20/19 25 XR, hip + pelvi s, unila teral No observ ation record ed. [email or web address] [facility] [place] [address], [place], [address], 08/19/2024 12:03:48 Result Notes None recorded. 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 28249395 Active 2022 PRINCESS Trujillo [address], [place], [address] , [employer] [facility] [employer] [facility] 3 17:12:14 Ganglion cyst of right wrist 5877660577638 09 Active 2022 PRINCESS Trujillo [address], [place], [address] , [facility] [employer] [facility] 3 17:12:34 Synovial cyst of wrist 925781130 Active 2022 PRINCESS Trujillo [address], [place], [address] , [facility] [employer] [facility] 3 17:20:01 Pain of right hip joint 8332534810246 02 Active 2022 Linh Aburto null, [facility] [employer] [facility] 3 13:16:10 Pain in right sacroiliac joint 6038367450764 9107 Active 2022 Nilsa Eng CNA null, [facility] [employer] [facility] 3 13:54:34 Trochanter ic bursitis of right hip 6216263469552 00 Active 2022 PRINCESS [address], [place], [address] , [facility] [employer] [facility] 3 14:09:29 Osteoarthr itis of right hip joint 3330742038883 07 Active 2024 PRINCESS Oleary [address] [email or web address], [place], [address] , [facility] [employer] [facility] 5 12:04:15 Problem Notes None recorded. Medical Equipment None Reported. Allergies Allergen ID Allergen Name Allergen Category Reaction Reaction Severity Criticality Documentation Date Start Date Code Code System Note Provider Name and Address Organization Details Recorded Time 35221 Product containin g penicilli n (product) medicatio n Not available Not available Not available 06/28/2022 78699 8001 SNOMED ALFREDO Patino, [facility] 3 14:36:34 Medications Name Sig Start Date Stop Date Status Note LastModified by Organization Details LastModified Time celecoxib 200 mg capsule TAKE 1 CAPSULE BY MOUTH EVERY DAY active Not Available Not Available No t Available cyclobenzap rine 10 mg tablet TK 1 [...] 20 mg by injection route. 2024 active [facility]: 0003- 0494- 20 Not Available Not Available [...] 20 mg by injection route. 2022 active [facility] 79109 -064- 01 Not Available Not Available Not Available Myrbetriq 50 mg tablet,exte nded release TAKE 1 TABLET BY MOUTH DAILY. MONITOR BLOOD PRESSURE WEEKLY. 06/28 completed Not Available Not Available Not Available Fluzone High-Dose 9957-0149 (PF) 180 mcg/0.5 mL intramuscul ar syringe ADM 0.5ML UTD 06/20 completed Not Available Not Available Not Available Fluvirin 1038-6394 45 mcg (15 mcg x 3)/0.5 mL intramuscul ar suspension ADM 0.5ML UTD 06/20 completed Not Available Not Available Not Available Fluzone High-Dose 2014- (PF) 180 mcg/0.5 mL intramuscul ar syringe 06/20 completed Not Available Not Available Not Available Shingrix (PF) 50 mcg/0.5 mL intramuscul ar suspension, kit 06/20 completed Not Available Not Available Not Available Fluzone High-Dose 4025-8137 (PF) 180 mcg/0.5 mL intramuscul ar syringe 06/20 completed Not Available Not Available Not Available Vitals Date Recorded Body height Body mass index (BMI) Body weight Provider Name and Address Organization Details Last Updated DateTime 06/28/2022 144.78 cm 35.1 kg/m2 15278.96 g ALFREDO Patino [place] [facility] [employer] 06/28/2022 14:36:18 Date Recorded Body height Body mass index (BMI) Body weight Provider Name and Address Organization Details Last Updated DateTime 08/19/2024 149.86 cm 29.7 kg/m2 04137.08 heber Jama [facility] [employer] 08/19/2024 11:20:39 Date Recorded Body height Body mass index (BMI) Body weight Provider Name and Address Organization Details Last Updated DateTime 10/06/2022 142.24 cm 36.3 kg/m2 74960.96 heber Aburto [facility] [employer] 10/06/2022 13:15:30 Social History Question Answer Notes LastModified by Organizat ion Details LastModified Time Tobacco Smoking Status Unknown If Ever Smoked ALFREDO Patino, [facility] [employer] [facility] 06/28/2022 14:41:00 What Was The Date Of Your Most Recent Tobacco Screening? 06/28/2022 [email or web address] Information not available 06/28/2022 Sex: Unknown Functional Status Question Answer Note LastModified by Organization D etails LastModified Time What is your level of alcohol consumption? None [email or web address] Information not available 06/28/2022 Mental Status None recorded. Family History Relationship Description Onset Age of this Age Resolved Age Notes LastModified by Organization Details LastModified Time Father Heart disease Not available 2022 14:40:21 Father Family history of malignant neoplasm Not available 2022 14:40:30 Father Hypertensive disorder [email or web address] Not available 2022 14:40:40 Medical History Condition Response ARTHRITIS Y URINARY/BLADDER/KIDNEY PROBLEMS Y Gynecological HistoryNo gynecological history recorded. Obstetrics History GPAL:G 0 P 0 0 0 0 Past Encounters Encounter ID Performer Location Encounter Start Date Encounter Closed Date Diagnosis/Indication Diagnosis SNOMED-CT Code Diagnosis ICD10 Code Diagnosis Note [id number] Jonatan Gardner MD [facility] [address] [place] [address] 06/28/2022 14:07:18 06/28/2022 15:02:39 Osteoarthrosis of the carpometacarpal joint of the thumb 81385070 M18.9 Synovial c yst of wrist 934382216 M71.339 [id number] Sony Hernandez MD [facility] [place] [address] [place] [address] 10/06/2022 13:11:21 10/06/2022 14:50:41 Pain of right hip joint 0128124728 45791 M25.551 Pain in ri ght sacroiliac joint 9558861797 5377553 M53.3 Trochanter ic bursitis of right hip 6984420166 51474 M70.61 [id number] Agusto Feliz MD [facility] [place] [address] [place] [address] 08/19/2024 10:53:33 08/19/2024 12:11:58 Pain of right hip joint 7207788941 44520 M25.551 Trochanter ic bursitis of right hip 6190023632 50484 M70.61 Pain in ri ght sacroiliac joint 8076433943 4264766 M53.3 Osteoarthr itis of right hip joint 8819970097 30108 M16.11 Health Concerns Section Related Observation LastModified by Organization Detai ls LastModified Time None Recorded Concern Status LastModified by Organization Details LastModified Time None Recorded Advance Directives Directive None Recorded Payers Insurance Date Sequence Insurance Name Policy Number Policy Jiménez Covered Member ID Jiménez Member ID Guarantor Name 08/19/2024 2 [place] Cristina Moran [id number] Cristina Moran 08/31/2024 1 [facility] - MEDICARE COMPLETE PLAN 2 (MEDICARE REPLACEMENT HMO) [id number] Cristina Moran [id number] Cristina Moran Notes Date Note Type Note Provider Name and Address Organization Details Recorded Time 06/28/2022 text/html 81 year old femchon peck who presents to the clinic with swelling of her right wrist. Her swelling started about 2-3 month ago, without injury. She has pain with thumb motion and wrist flexion/extension. She has occasional numbness and tingling in her fingertips. She denies any erythema or warmth of the swelling. She denies fever or chills. [address], [place], [address], [facility] [employer] [facility] [employer] [facility] 06/28/2022 17:21:10 10/06/2022 text/html patient returns complaining [...] above issues. PRINCESS Oleary [address] [facility], [place], [address], [employer] [facility] [employer] [facility] 10/06/2022 14:09:56 08/19/2024 text/html The patient is [...] for some occasional ibuprofen. PRINCESS Oleary [address] [facility], [address], [place], [address], [place] [employer] 08/19/2024 12:05:03 OBGyn Episode No OBEpisode recorded.
--- OUTSIDE RECORDS SUMMARY | 2024-10-02 09:07 | XMS_ITS | Referral Summary ---
Author Organization [facility] [place] [facility] [address] Address [address] [place] [address] Care Team Providers Care Shake Backboard Notcher Name Role Phone Michael Sharpe DO Primary Care Provider [phone] Allergies Active Allergy Reactions Criticality Noted Date Comments Penicillins Rash Medium 01/09/2015 Social History Tobacco Use Types Packs/Day Years Used Date Smoking Tobacco: Never Assessed Personal Safety Answer Date Recorded Getting School Help Needed Not on file 06/16 Comments Unknown Sex and Gender Information Value Date Recorded Sex Assigned at Not on file 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
--- OUTSIDE RECORDS SUMMARY | 2024-10-02 09:07 | XMS_ITS | Clinical Summary ---
Author Organization [facility] Address [address] [place] [address] Care Team Providers Care Page Designer Name Role Phone Unavailable Primary Care Provider Unavailabl e Social History Tobacco Use Types Packs/Day Years Used Date Smoking Tobacco: Never Assessed Comments Unknown Sex and Gender Information Value Date Recorded Sex Assigned at Not on file Legal Sex Female 10:48 AM CDT Gender Identity Not on file Sexual Orientation Not on file Plan of Treatment Health Maintenance Due Date Last Done Comments Hepatitis C Virus (HCV) Screening 1940 Respiratory Syncytial Virus (RSV) Immunization (Adult) (1 - 1-dose 75+ series) 2016 Pneumococcal Immunization (50+ years) (2 of 2 - PPSV23) 02/23/2019 02/23/2018 SARS-COV-2 Immunization ( - season) 2023 Influenza Immunization (Season Ended) 2024 01/08/2020, 01/20/2017, 01/12/2016, Additional history exists DTaP/Tdap/Td Immunization Discontinued 01/13/2015 TdaP Immunization Completed 01/13/2015 Pneumococcal Immunization Combined Discontinued 02/23/2018 Zoster Immunization Completed 09/26/2018, 9 Hepatitis B Immunization Aged Out No longer eligible based on patient's age to complete this topic Human Papillomavirus (HPV) Immunization Aged Out No longer eligible based on patient's age to complete this topic Meningococcal Immunization (ACWY) Aged Out No longer eligible based on patient's age to complete this topic Rotavirus Immunization Aged Out No lo nger eligible based on patient's age to complete this topic
--- OUTSIDE RECORDS SUMMARY | 2024-10-02 09:08 | XMS_ITS | Data Portability ---
Author Organization [facility] Alexandre Noriega Address [address] [place] [id number] Assessment No assessment recorded. Plan of Treatment [...] dose or 50 mcg/0.25mL dose 05/15/2020 completed [facility] [place], [place] - [facility] 05/15/2020 16:03:20 COVID-19, mRNA, LNP-S, PF, 100 mcg/0.5mL dose or 50 mcg/0.25mL dose 06/12/2020 completed Kapil Alexander MA [facility], [place] - [facility] 06/12/2020 14:26:17 Past Encounters Encounter ID Performer Location Encounter Start Date Encounter Closed Date Diagnosis/Indication Diagnosis SNOMED-CT Code Diagnosis ICD10 Code Diagnosis Note [id number] MD Gabi Mckenzie [address] [place] [address] 05/15/2020 12:54:22 05/18/2020 07:37:50 Administration of SARS-CoV-2 antigen vaccine [id number] Z23 [id number] MD Gabi Mckenzie [address] [place] [address] 06/12/2020 12:00:45 06/15/2020 13:23:05 Administration of SARS-CoV-2 antigen vaccine [id number] Z23 Health Concerns Section Related Observation LastModified by Organization Detai ls LastModified Time None Recorded Concern Status LastModified by Organization Details LastModified Time None Recorded Advance Directives Directive None Recorded Payers Insurance Date Sequence Insurance Name Policy Number Policy Jiménez Covered Member ID Jiménez Member ID Guarantor Name 08/31/2023 2 [facility] (MEDICARE REPLACEMENT/A DVANTAGE - HMO) [id number] Cristina Moran [id number] Cristina Moran 08/31/2023 1 [place] Cristina Moran [id number] Cristina Moran 08/31/2023 [place] [facility] Cristina Moran [id number] Cristina Moran OBGyn Episode No OBEpisode recorded.
--- OUTSIDE RECORDS SUMMARY | 2024-10-02 09:08 | XMS_ITS | Continuity of Care Document ---
Author Organization [facility] Address [address] [place] [address] Phone Care Team Providers Care Continuous Process Machine Operator Name Role Phone Rosalie Triana Unavailable Unavailable [...] Diagnoses Date Provider Providers Copied on Encounter [facility], [address], [place], [place], [address], [place] tel:[phone] BRQ [facility] No Information Oct-2 1-201 0 Kamilah Wiggins. [address] [facility] [address] , [address], [place], [address], [place]. tel:[phone] [facility], [address], [place], [place], [id number], [place] tel:[phone] [facility] [place] No Information 6-201 0 Kamilah Avila [address] [facility] , [address], [place], [place], [facility], . tel:[phone] Referring Provider: Rosalie Hudson, [address], [place], [facility]. tel:[phone] [facility], [address] [place] [address] [address], [place], [place], [address], [phone] [facility] [place] No Information 0-201 0 Kamilah Wiggins. [address] [facility] , [address], [place], [place], [facility], . tel:[phone] Referring Provider: Rosalie Hudson, [address], [place], [facility]. tel:[phone] Office/outpat ient Visit, [facility], [address] [place] [address] [address], [place], [place], [address], [place] [phone] [facility] [place] No Information 5-201 0 Kamilah Avila [facility] , [address], [place], [facility], [place]. tel:[phone] Referring Provider: Rosalie Hudson, [address], [place], [facility]. tel:[phone] Office/outpat ient Visit, [facility], [address] [place] [address] [address], [place], [place], [address], [place] tel:[phone] SEC [facility] [place] No Information 5-200 9 Kamilah Avila [address] , [address], [place], [facility], . tel:[phone] [facility], [address], [place], [place], [address], [place] tel:[phone] [facility] No Information 9 Kamilah Avila [address] , [address], [place], [facility], . tel:[phone] Referring Provider: Rosalie Hudson, [address], [place], [facility]. tel:[phone] Office/outpat ient Visit, [facility], [address], [place], [place], [address], [place] tel:[phone] [facility] No Information 8 Kamilah Wiggins. [address] [facility] , [address], [place], [facility], . tel:[phone] Office/outpat ient Visit, [facility], [address], [place], [place], [address], [place] tel:[phone] [facility] No Information 8 Kamilah Wiggins. [facility] , [address], [place], [facility], [place]. tel:[phone] [facility], [address], [place], [place], [address], [place] tel:[phone] SEC [facility] No Information 7 Kamilah Wiggins. [address] [facility] , [address], [place], [facility], [place]. tel:[phone] Referring Provider: Rosalie Hudson, [address], [place], [facility]. tel:[phone] Office/outpat ient Visit, [facility], [address], [place], [place], [address], [place] tel:[phone] SEC [facility] No Information 7 Kamilah Wiggins. [address] , [address], [place], [address], [place]. tel:[phone] Family History Family Member Type Diagnosis Age At Onset No Information Payers Payer name Insurance type Covered republican ID Authoriza tipam(s) [place] [id number] [facility] [id number] Social History Type Description Quantity Date Captured [...]
[2024-10-02 12:29] LABS: Hematocrit 42.0 % (37.0-47.0); Hemoglobin 13.2 g/dL (12.0-15.0); Immature Granulocyte Percent A 0.2 % (0-0.5); Lymphocytes Absolute Auto 1.53 K/mm3 (0.9-3.2); Mean Corpuscular HGB Conc 31.4 g/dl (32-36); Mean Corpuscular Hemoglobin 28.8 pg (26-34); Mean Corpuscular Volume 91.7 fl (80-100); Nucleated Red Blood Cells Absolute Auto 0.000 K/mm3 (0.0-0.012); Nucleated Red Blood Cells Perc 0.0 % (0.0-0.2); Platelet Count Result 154 k/mm3 (150-375); Red Blood Count 4.58 M/mm3 (4.2-5.4); White Blood Count 4.2 K/mm3 (4.5-10.0)
[2024-10-02 14:33] LABS: Alanine Aminotransferase 18 U/L (6-35); Albumin Level 4.0 g/dL (3.5-5.1); Alkaline Phosphatase 66 U/L (38-126); Anion Gap 7 mmol/L (4-12); Aspartate Amino Transferase 54 U/L (14-36); Bilirubin,Total 0.5 mg/dL (0.2-1.3); Blood Urea Nitrogen 15 mg/dL (7-17); Calcium 9.8 mg/dL (8.4-10.2); Carbon Dioxide 29 mmol/L (22-30); Chloride 105 mmol/L (98-107); Cholesterol 168 mg/dL (0-200); Estimated Glomerular Filt Rate > 60; Glucose 99 mg/dL (65-110); HDL Direct 42 mg/dL; Potassium 4.1 mmol/L (3.4-5.0); Sodium 141 mmol/L (137-145); Total Protein 6.7 g/dL (6.3-8.2); Triglycerides 80 mg/dL (<150)
[2024-10-02 15:36] LABS: Hemoglobin A1C. 5.9 % (<5.7)
== END 2024-10-02 09:02 | disposition home or self-care (01) ==
LOC: ANHGOSHLAB 09:02
PROVIDERS: PCP Nurse Practitioner; Visit Provider Nurse Practitioner
DX: E11.9 Type 2 diabetes mellitus without complications (principal); E55.9 Vitamin D deficiency, unspecified
CPT/HCPCS: 36415; 80053; 80061; 82306; 83036; 85025

== ENCOUNTER 2024-10-09 14:50 | Outpatient (NON) | payer MEDICARE, SELFPAY ==
--- OUTSIDE RECORDS SUMMARY | 2024-10-09 14:55 | XMS_ITS | Clinical Summary ---
Author Organization [facility] [address] Address [address] [place] [address] Care Team Providers Care Mails Supervisor Name Role Phone Michael Sharpe DO Primary Care Provider [phone] Allergies Active Allergy Reactions Criticality Noted Date Comments Penicillins Rash Medium 01/09/2015 Social History Tobacco Use Types Packs/Day Years Used Date Smoking Tobacco: Never Assessed Personal Safety Answer Date Recorded Getting School Help Needed Not on file 06/16 Comments Unknown Sex and Gender Information Value Date Recorded Sex Assigned at Not on file 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
--- OUTSIDE RECORDS SUMMARY | 2024-10-09 14:55 | XMS_ITS | Continuity of Care Document ---
Author Organization [facility] Address [address] [place] [address] Phone Care Team Providers Care Principal Statistical Scientist Name Role Phone Rosalie Triana Unavailable Unavailable [...] Diagnoses Date Provider Providers Copied on Encounter [facility], [address], [place], [place], [address], [place] tel:[phone] [facility] No Information Oct-2 1-201 0 Kamilah Wiggins. [address] [facility] , [address], [place], [address], [place]. tel:[phone] [facility], [address], [place], [place], [address], [place] tel:[phone] [facility] [place] No Information 6-201 0 Kamilah Avila [address] [facility] , [address], [place], [facility], . tel:[phone] Referring Provider: Rosalie Hudson, [address], [place], [facility]. tel:[phone] [facility], [address] [place] [address] [address], [place], [place], [address], [phone] [facility] [place] No Information 0-201 0 Kamilah Wiggins. [address] [facility] , [address], [place], [facility], . tel:[phone] Referring Provider: Rosalie Hudson, [address], [place], [facility]. tel:[phone] Office/outpat ient Visit, [facility], [address] [place] [address] [address], [place], [place], [address], [place] [phone] [facility] [place] No Information 5-201 0 Kamilah Avila [facility] , [address], [place], [facility], [place]. tel:[phone] Referring Provider: Rosalie Hudson, [address], [place], [facility]. tel:[phone] Office/outpat ient Visit, [facility], [address] [place] [address] [address], [place], [place], [address], [place] tel:[phone] [facility] [place] No Information 5-200 9 Kamilah Avila [address] , [address], [place], [facility], . tel:[phone] [facility], [address], [place], [place], [address], [place] tel:[phone] [facility] No Information 9 Kamilah Avila [address] , [address], [place], [facility], . tel:[phone] Referring Provider: Rosalie Hudson, [address], [place], [facility]. tel:[phone] Office/outpat ient Visit, [facility], [address], [place], [place], [address], [place] tel:[phone] [facility] No Information 8 Kamilah Wiggins. [address] [facility] , [address], [place], [facility], . tel:[phone] Office/outpat ient Visit, [facility], [address], [place], [place], [address], [place] tel:[phone] [facility] No Information 8 Kamilah Wiggins. [facility] , [address], [place], [facility], [place]. tel:[phone] [facility], [address], [place], [place], [address], [place] tel:[phone] SEC [facility] No Information 7 Kamilah Wiggins. [address] [facility] , [address], [place], [facility], [place]. tel:[phone] Referring Provider: Rosalie Hudson, [address], [place], [facility]. tel:[phone] Office/outpat ient Visit, [facility], [address], [place], [place], [address], [place] tel:[phone] SEC [facility] No Information 7 Kamilah Wiggins. [address] , [address], [place], [address], [place]. tel:[phone] Family History Family Member Type Diagnosis Age At Onset No Information Payers Payer name Insurance type Covered republican ID Authoriza tipam(s) [place] [id number] [facility] [id number] Social History Type Description Quantity Date Captured [...]
--- OUTSIDE RECORDS SUMMARY | 2024-10-09 14:55 | XMS_ITS | Referral Summary ---
Author Organization [facility] [address] Address [address] [place] [address] Care Team Providers Care Power Cleaner Operator Name Role Phone Michael Sharpe DO Primary Care Provider [phone] Allergies Active Allergy Reactions Criticality Noted Date Comments Penicillins Rash Medium 01/09/2015 Social History Tobacco Use Types Packs/Day Years Used Date Smoking Tobacco: Never Assessed Personal Safety Answer Date Recorded Getting School Help Needed Not on file 06/16 Comments Unknown Sex and Gender Information Value Date Recorded Sex Assigned at Not on file 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
--- OUTSIDE RECORDS SUMMARY | 2024-10-09 14:55 | XMS_ITS | Clinical Summary ---
Author Organization [facility] Address [address] [place] [address] Care Team Providers Care Automotive Service Management Teacher Name Role Phone Unavailable Primary Care Provider [...] Immunization ( - season) 2023 Influenza Immunization (#1) 12/02/202410/2019, 01/20/2017, 01/12/2016, Additional history exists DTaP/Tdap/Td Immunization [...]
[2024-10-09 21:11] LABS: Add Urine Microscopic? YES; Appearance Urine Cloudy (Clear); Glucose Urine UA Negative (Negative); Leukocyte Esterase Ur 3+ LEU/UL (Negative); Need Manual Microscopic Reviewed; Nitrate Urine Positive (Negative); Non Pathogenic Casts 0-2; Specific Grav Ur 1.018 (1.001-1.035)
== END 2024-10-09 14:51 | disposition home or self-care (01) ==
LOC: ANHGOSHLAB 14:51
PROVIDERS: PCP Nurse Practitioner; Visit Provider Nurse Practitioner
DX: N39.0 Urinary tract infection, site not specified (principal); R39.9 Unspecified symptoms and signs involving the genitourinary system; R35.0 Frequency of micturition
CPT/HCPCS: 81001

== ENCOUNTER 2025-01-02 08:16 | Outpatient (CLI) | payer MEDICARE, SELFPAY ==
--- NOTE | ~2025-01-02 | MM_ITS ---
EXAMINATION: MM diagnostic ciro BI w waldemar HISTORY: Bilateral benign breast biopsies. TECHNIQUE: Additional 3-D tomosynthesis images of the breasts were performed and synthetic 2-D images were generated. CAD analysis was submitted and interpreted. COMPARISON: Comparison to multiple prior studies sequentially, with oldest reviewed study dated 12/18/2020. BREAST PARENCHYMAL COMPOSITION: Not dense: There are scattered areas of fibroglandular density. FINDINGS: The breasts are stable. No new masses, calcifications or architectural distortion in either breast to suggest malignancy. IMPRESSION: 1. Stable bilateral mammogram without evidence for malignancy. 2. Routine yearly screening mammogram and regular clinical breast examination are recommended. BI-RADS Category 1: Negative Reviewed, dictated and finalized at location B. IMPRESSION: 1. Stable bilateral mammogram without evidence for malignancy. 2. Routine yearly screening mammogram and regular clinical breast examination a re recommended. BI-RADS Category 1: Negative
== END 2025-01-02 08:17 | disposition home or self-care (01) ==
LOC: MICIMG 08:17
PROVIDERS: PCP Nurse Practitioner; Visit Provider Surgery
DX: N63.15 Unspecified lump in the right breast, overlapping quadrants (principal); N64.89 Other specified disorders of breast
CPT/HCPCS: 77062; 77066; G0279

== ENCOUNTER 2025-01-16 11:12 | Outpatient (CLI) | payer MEDICARE, SELFPAY ==
--- NOTE | ~2025-01-16 | US_ITS ---
Clinical history:Follow-up. History of a benign right breast biopsy. EXAM:Ultrasound breast right Limited TECHNIQUE:Multiple static grayscale images and color Doppler images were obtained of the areas of concern in the right breast. Comparisons:Breast ultrasound 07/11/2024 and 01/10/2024. FINDINGS: There is a 7 x 5 x 4 mm wider than tall hypoechoic mass in the right breast 11:00 position 4 cm from the nipple. Margins are well-circumscribed. No internal color Doppler flow. No posterior acoustic shadowing. The finding previously measured 7 x 5 x 3 mm on 01/10/2024. The finding is suspicious. An ultrasound- guided biopsy is recommended. There is a 4 x 4 x 2 mm wider than tall hypoechoic mass in the right breast 11:00 position 7 cm from the nipple anterior depth. No internal color flow. No posterior acoustic shadowing. The finding previously measured 4 x 2 x 4 mm on 07/11/2024. The finding is probably benign. There is a 5 x 2 x 5 mm wider than tall hypoechoic mass in the right breast at 10:00 position 3 cm from the nipple. Margins are well-circumscribed. No internal color Doppler flow. No posterior acoustic shadowing. The finding previously measured 5 x 5 x 3 mm on 07/11/2024. The finding is probably benign. IMPRESSION: 1. Probably benign masses in the right breast. A six-month follow-up right breast ultrasound is recommended. BI-RADS 3-Probably benign-Short interval follow-up suggested. Reviewed, dictated and finalized at location Q. IMPRESSION: 1. Probably benign masses in the right breast. A six-month follow-up right [address] st ultrasound is recommended. BI-RADS 3-Probably benign-Short interval follow-up suggested.
--- OUTSIDE RECORDS SUMMARY | 2025-01-16 13:15 | XMS_ITS | Clinical Summary ---
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
--- OUTSIDE RECORDS SUMMARY | 2025-01-16 13:15 | XMS_ITS | Clinical Summary ---
Author Organization [facility] Address [address] [place] [address] Care Team Providers Care Folder Operator Name Role Phone Unavailable Primary Care Provider [...] Immunization (50+ years) (2 of 2 - PCV20 or PCV21) 02/23/2019 02/23/2018 Influenza Immunization (#1) 2024 10/0 10/2019, 01/20/2017, 01/12/2016, Additional history exists SARS-COV-2 Immunization ( season) 2024 DTaP/Tdap/Td Immunization Discontinued 01/13/2015 TdaP Immunization Completed [...]
== END 2025-01-16 11:13 | disposition home or self-care (01) ==
LOC: ANHFOHIMG 11:13
PROVIDERS: PCP Nurse Practitioner; Visit Provider Surgery
DX: N64.89 Other specified disorders of breast (principal); N63.15 Unspecified lump in the right breast, overlapping quadrants; R92.8 Other abnormal and inconclusive findings on diagnostic imaging of breast
CPT/HCPCS: 76642